=== PATIENT | female | born 2005 | race Caucasian/White ===

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

== ENCOUNTER 2023-01-10 08:18 | Outpatient (REF) | payer OTHER, SELFPAY ==
[2023-01-10 09:39] LABS: MANUAL DIFF FLAG NO
[2023-01-10 10:30] LABS: Basophils Percent Auto 0.4 % (0-2); Eosinophils Absolute Auto 0.1 X10*3/uL (0.0-0.4); Hematocrit 43.6 % (37.0-47.0); Hemoglobin 13.7 g/dl (12.0-16.0); Imm Gran Abs Auto 0.02 X10*3/uL (0.00-0.03); Imm Gran Pct Auto 0.2 % (0.0-0.4); Lymphocytes Absolute Auto 2.3 X10*3/uL (1.2-4.9); Lymphocytes Percent Auto 28.2 % (20-40); Mean Corpuscular HGB Conc 31.4 g/dl (31.0-35.0); Mean Corpuscular Hemoglobin 25.7 pg (27.0-33.0); Mean Corpuscular Volume 81.8 fL (80.0-98.0); Mean Platelet Volume 10.5 fL (9.4-12.3); Monocytes Absolute Auto 0.5 X10*3/uL (0.1-1.2); Monocytes Percent Auto 6.4 % (2-11); Neutrophils Absolute Auto 5.2 x10*3/uL (2.0-8.3); Neutrophils Percent Auto 63.8 % (45-73); Platelet Count 326 X10*3/uL (160-400); Red Blood Count 5.33 X10*6/uL (4.20-5.50); Red Cell Distribution Width 13.9 % (11.0-16.0); White Blood Count 8.1 X10*3/uL (4.8-10.8)
[2023-01-10 10:55] LABS: Alanine Aminotransferase 18 U/L (0-31); Albumin Level 4.3 g/dL (3.5-5.0); Alkaline Phosphatase 64 U/L (39-117); Anion Gap 13 (12-20); Aspartate Amino Transferase 14 U/L (5-31); Bilirubin Total 0.7 mg/dL (0.0-1.0); Blood Urea Nitrogen 9 mg/dL (9-16); C Reactive Protein 2.06 mg/dL (< or = 0.50); Calcium 9.7 mg/dL (8.4-10.2); Carbon Dioxide 25 mmol/L (22-29); Chloride 106 mmol/L (96-108); Estimated Glomerular Filt Rate > 60; Glucose Random 90 mg/dL (60-115); Potassium 3.8 mmol/L (3.3-5.1); Sodium 140 mmol/L (135-145)
[2023-01-14 17:59] LABS: Gliadin Deamidated IgA Ab 3.4 U/mL; Gliadin Deamidated IgG Ab <1.0 U/mL; Transglutaminase Ab IgG <1.0 U/mL; Transglutaminase IgA <1.0 U/mL
== END 2023-01-10 08:19 | disposition home or self-care (01) ==
LOC: HO.LAB 08:18
PROVIDERS: PCP Internal Medicine; Visit Provider Nurse Practitioner
DX: K80.20 Calculus of gallbladder without cholecystitis without obstruction (principal); E66.01 Morbid (severe) obesity due to excess calories; R19.7 Diarrhea, unspecified; B37.9 Candidiasis, unspecified; Z91.09 Other allergy status, other than to drugs and biological substances
CPT/HCPCS: 36415; 80053; 84443; 85025; 86003; 86140; 86258; 86364

== ENCOUNTER 2023-01-13 15:16 | Outpatient (REF) | payer OTHER, SELFPAY ==
[2023-01-22 21:14] LABS: Pancreatic Elastase-1 >500 mcg/g
== END 2023-01-13 15:17 | disposition home or self-care (01) ==
LOC: HO.LNP 15:16
PROVIDERS: Visit Provider Nurse Practitioner
DX: R19.7 Diarrhea, unspecified (principal)
CPT/HCPCS: 82656; 87338

== ENCOUNTER → 2023-02-07 10:50 | Outpatient (REF) | payer OTHER, SELFPAY ==
--- NOTE | ~2023-02-07 | NM_ITS ---
EXAMINATION: BILIARY TRACT IMAGING STUDY WITH CCK CLINICAL INFORMATION: Diarrhea, unspecified.. COMPARISON: No previous imaging studies are available for comparison.. TECHNIQUE: Serial gamma scintillation camera images were obtained over the abdomen for a total observation period of 93 minutes following the intravenous administration of 5 mCi Tc-99m Mebrofenin. FINDINGS: There is good concentration of activity in the liver by 5 minutes post injection. Biliary activity is visualized by 10 minutes. The gallbladder is well visualized by 40 minutes. Small bowel is well visualized by 15 minutes. At 6 minutes post radiopharmaceutical injection, a 30-minute infusion of 2.2 micrograms Sincalide was then begun and an additional 40 minutes of images were obtained. There is good emptying of the gallbladder. By the end of the study there is good clearance of activity from the liver and visualization of diffuse small bowel activity. The calculated gallbladder ejection fraction is 94% (normal gallbladder ejection fraction is greater than 35%). NM/NM hepatobiliary w pharm IMPRESSION: Visualization of the gallbladder is evidence of a patent cystic duct and strong evidence against the diagnosis of acute cholecystitis. The common bile duct is patent. Gallbladder emptying and ejection fraction are normal. Liver function appears normal.
== END ==
LOC: HO.NUCMED 10:50
PROVIDERS: PCP Internal Medicine; Visit Provider Nurse Practitioner
DX: R19.7 Diarrhea, unspecified (principal)
CPT/HCPCS: 78227; A9537; J2805

== ENCOUNTER 2023-02-14 10:07 | Outpatient (AMB) | payer OTHER, SELFPAY ==
--- NOTE | 2023-02-14 10:31 | A.OFFVIS_ITS ---
Intake Vital Signs 02/14/23 10:41 Height 4 ft 11 in Weight 240 lb BMI 48.5 BP 122/60 Blood Pressure Location Lt brachial Position Sitting Pulse 97 Intake Visit Reasons: 3 week fu Intake Note: Patient follow up Gallbladder problems lems. Patient cc: abdominal pain/bloating, constipation with blood, no energy , hard to sleep and some diarrhea, acid reflex and some dysphagia. Always have to use a heat pad due the pain. Orthopedic Coder Required: No Accompanied by: Mother Allergies cat dander Adverse Reaction (Verified 02/14/23 10:37) Itchy Eyes house dust mite Adverse Reaction (Verified 02/14/23 10:37) itchy eyes mold Adverse Reaction (Verified 02/14/23 10:37) ithcy eyes HPI 3 week fu HPI Details Assessment & Plan (1) Gallbladder calculus: ?Code(s): K80.20 - Calculus of gallbladder without cholecystitis without obstruction ?Plan: The the patient presents today with her mother who is supportive. She is having pain under the bilateral ribs that radiates to the back and to her right shoulder. She also is very nauseated, having diarrhea alt with more formed stools. This has been going on for months. This came on slowly. She is also very bloated and eating makes the nausea worse. There are no specific food triggers. At times she will feel pain in the low abdomen, and she will feel that her belly is being squished form the RUQ inward (the LUQ too). This is worsened after she has a BM.? However in terms of the lower abdominal pain she is also having very heavy and prolonged menses for which she is seeing an OBGYN.? In fact it was the OBGYN who ordered the ultrasound and CT scan to explore her ongoing symptoms. She is always fatigued and cold.? Her weight has only fluctuated up and down a couple of lb. She seems resistant to medications and she becomes anxious with s/e. She was recently on sertraline and stopped it and just started Depo shots and thinks that these are also giving her side effects.? Her mother is trying to encourage her to continue with medications to see if her body can adjust to them because she thinks the psych medicine seem to do her good.? Her mom also states the patient does a lot of reading on the Internet and this may be influencing her perception of side effects. Her mother and her sister and maternal grandmother all had cholecystectomies.? I explained to them that the CT was not conclusive for gallstones/sludge and interesting that her symptoms do not seem to be exacerbated by fatty foods.? She likes to eat mostly mac and cheese all of her life, milk will hurt her stomach and she may be lactose intolerant. No known food allergies in family. NO known colon problems. No known stomach or esoph cancer but her mother had mouth cancer (not a smoker) and her mother had Hodgkins lymphoma. I educate him that we want to make sure that the gallbladder is actually the cause of her symptoms before she undergoes a major surgery.? I also explained the physiology of the GI system and that her symptoms also could be driven by the colon which also runs underneath bilateral ribcage.? I let them understand that I have not completely ruling out the gallbladder as the cause but I want to be sure so that she does not go through something and end up having exactly the same symptoms and more after major surgery.? The both seem to understand this. Her mother has IBS.? The patient also has many physical manifestations to her anxiety including hives, leg swelling etc. and this prompts me to educate them that IBS and GI problems also were heavily influenced by neural on hormone with signals including the fight or flight reflex that is closely linked with anxiety.? However, I always like to rule out more severe pathology before we say that this is anxiety driven. She is on omeprazole for GERD.? At this point I think will get basic labs including a thyroid, an H pylori stool, pancreatic elastase, RAST allergy and celiac testing.? For the bowel them going to give her dicyclomine for comfort and as a diagnostic test to see if we can tease out IBS symptoms. I think will start her on simethicone as well as dicyclomine.? I will try to get a HIDA scan to see if gallbladder problems are part of the diagnostic picture.? I will also give her some nystatin cream for her Yarely rash which is noted on physical exam.? Return office visit in 3 weeks. (2) Morbid obesity: ?Code(s): E66.01 - Morbid (severe) obesity due to excess calories (3) Diarrhea: ?Code(s): R19.7 - Diarrhea, unspecified (4) Yarely albicans infection: ?Code(s): B37.9 - Candidiasis, unspecified ? ? ? Orders: Orders Pancreatic Elastas e-1 01/14/23 R19.7 - Diarrhea, unspecified ? Comprehensive Met. Panel 01/10/23 R19.7 - Diarrhea, unspecified ? C Reactive Protein 01/10/23 R19.7 - Diarrhea, unspecified ? Rast Allergen 01/10/23 R19.7 - Diarrhea, unspecified ? TSH reflex Free T4 01/10/23 R19.7 - Diarrhea, unspecified ? Complete Blood Cou nt Auto Diff 01/10/23 R19.7 - Diarrhea, unspecified ? Gliadin Ab Panel 01/10/23 R19.7 - Diarrhea, unspecified ? Transglutaminase I gA 01/10/23 R19.7 - Diarrhea, unspecified ? Transglutaminase A b IgG 01/10/23 R19.7 - Diarrhea, unspecified ? NM hepatobiliary w pharm 01/10/23 R19.7 - Diarrhea, unspecified ? H pylori Ag StoolB 01/14/23 R19.7 - Diarrhea, unspecified ? Medications: New dicyclomine 10 mg PO QID 120 c aps 3RF R19.7 - Diarrhea, unspecified ? simethicone ?? aft er meals 180 mg PO QID 120 caps 3RF 30 days ? ? nystatin 1 appl topical QID 30 grams 3RF B37.9 - Candidiasi s, unspecified ? LABS: Laboratory Tests 01/10/23 01/10/23 01/10/23 09:37 09:37 09:37 WBC 8.1 Hgb 13.7 Hct 43.6 Plt Count 326 Estimated GFR > 60 Total Bilirubin 0.7 AST 14 ALT 18 Alkaline Phosphata se 64 C-Reactive Protein 2.06 H TSH 1.00 Stool Pancreat Adrianna stase Stool H. pylori Ag Tiss Transglutamin IgG <1.0 Tiss Transglutamin IgA <1.0 Anti-Gliadin IgG A b <1.0 Gliadin (Deamidat) IgA 3.4 01/13/23 01/13/23 14:00 14:00 WBC Hgb Hct Plt Count Estimated GFR Total Bilirubin AST ALT Alkaline Phosphata se C-Reactive Protein TSH Stool Pancreat Adrianna stase >500 Stool H. pylori Ag negative Tiss Transglutamin IgG Tiss Transglutamin IgA Anti-Gliadin IgG A b Gliadin (Deamidat) IgA RAST She has low level of allergic response to: Egg whites, Peanuts, Wheat, and sesame seeds. HIDA SCAN 02/11/23 FINDINGS: There is good concentration of activity in the liver by 5 minutes post injection. Biliary activity is visualized by 10 minutes. The gallbladder is well visualized by 40 minutes. Small bowel is well visualized by 15 minutes. At 6 minutes post radiopharmaceutical injection, a 30-minute infusion of 2.2 micrograms Sincalide was then begun and an additional 40 minutes of images were obtained. There is good emptying of the gallbladder. By the end of the study there is good clearance of activity from the liver and visualization of diffuse small bowel activity. The calculated gallbladder ejection fraction is 94% (normal gallbladder ejection fraction is greater than 35%). NM/NM hepatobiliary w pharm IMPRESSION: Visualization of the gallbladder is evidence of a patent cystic duct and strong evidence against the diagnosis of acute cholecystitis. The common bile duct is patent. Gallbladder emptying and ejection fraction are normal. Liver function appears normal. ? TODAY'S VISIT She has some food allergies, and an elevated crp > 2. This could be from allergies or could be IBD. Will get stool calprotectin and IBS genetics. Will start reglan qidachs 5mg and she has rectal bleeding, mom hx of polyps, will get EGD/colonoscopy. Wants sutab ad can't drink other preps. She is frustrated that we can't just take out the GB but I explain the HIDA scan does not support this. She does not feel the food allreties are contributing as I don't eat those things but her mac and cheese has noodles that are wheat based. No real help with dicylcomine, diflucan, or simethicone. SHe has not yet used nystatin cream under stomach. ROV 3 weeks. [facility] Medical History Anxiety and depression Asymmetrical breasts Gallbladder calculus Low HDL (under 40) Morbid obesity Pulmonary valve stenosis Surgical History No pertinent past surgical history Family History Maternal Aunt No problems noted. Maternal Uncle Mental health disorder Mother Bronchial asthma Essential hypertension Morbid obesity Anxiety and depression Social History Housing: House Patient Tobacco Use Status: Never used Tobacco e-Cigarette/Vaping Use: Never Used service: No Current occupational status: unemployed Review of Systems Const Denies fatigue, Denies fever(s), Denies night sweats, Reports poor appetite and Denies weight loss ENT Reports Normal hearing present, Denies dental pain, Denies dysphagia, Denies hearing loss, Denies mouth pain, Denies odynophagia, Denies throat swelling, De nies tongue swelling and Reports other (Dentition adequate) Card Reports no additional complaints Resp Reports no additional complaints GI Reports abdominal pain, Denies melena, Denies bloating, Denies hematochezia, Reports constipation, Denies GI cramping, Denies dysphagia, Denies excessive flatus, Denies early satiety, Reports heartburn, Reports diarrhea, Reports nausea, Denies odynophagia, Denies vomiting and Denies hematemesis Skin/Breast Denies pruritus, Denies lesions, Denies rash and Denies jaundice Neuro Reports Normal hearing present and Denies Abnormal speech present Psych Reports anxiety Endo Denies fatigue Aller/Immun Denies throat swelling and Denies tongue swelling Physical Exam Vital Signs: Last Vital Signs Pulse 97 02/14/23 10:41 BP 122/60 02/14/23 10:41 BMI result Body Mass Index 48.5 Const General: cooperative, no acute distress, well developed and well groomed Nutritional Appearance: well nourished and obese morbidly obese Orientation/consciousness: oriented to person, oriented to place and oriented to time Limitations: No language barrier HEENT Head: Yes normocephalic and Yes atraumatic Eyes General: appearance normal, both eyes and all related structures Pupils: Equal, round and reactive pupils present Neck Neck: Yes normal visual inspection and Yes no lymphadenopathy Thyroid: Thyroid normal Resp Effort & Inspection: normal respiratory effort and able to speak in complete sentences Auscultation: clear to auscultation bilaterally Cardio Rate: regular rate Rhythm: regular rhythm Heart sounds: Normal, physiologic split S2 sound present Peripheral pulses: radial pulses present and posterior tibial pulses present GI Inspection: No distended, Yes Abdominal panniculus present and Yes obesity Palpation (GI): Soft to palpation, nontender, no guarding, not rigid and No hepatosplenomegaly present Percussion: Yes normal to percussion Auscultation: normal bowel sounds Rectal Exam - Female: deferred Skin General skin exam: no rashes or lesions noted, turgor normal, skin not dry, no jaundice, No spider nevi and no striae Rashes: no rashes Nails: normal Neuro General: oriented to person, oriented to place and oriented to time Cranial nerves: Yes Equal, round and reactive pupils present and Yes Normal hearing present Speech: No Abnormal speech present Extrem General: Yes normal to inspection, No clubbing, No cyanosis and No edema Psych Appearance: grossly normal and well kempt Mental Status: mental status grossly normal Speech and movement: Normal speech and movement present Affect: normal affect Attitude: cooperative Thought process: Normal thought process present and not confabulating Thought content: Normal thought content present Insight: Limited insight present (Psych) Judgement: Limited judgement present (Psych) Results Reviewed Results Reviewed: Laboratory Tests 01/10/23 01/10/23 01/10/23 09:37 09:37 09:37 WBC 8.1 Hgb 13.7 Hct 43.6 Plt Count 326 Estimated GFR > 60 Total Bilirubin 0.7 AST 14 ALT 18 Alkaline Phosphatase 64 C-Reactive Protein 2.06 H TSH 1.00 Stool Pancreat Elastase Stool H. pylori Ag Tiss Transglutamin IgG <1.0 Tiss Transglutamin IgA <1.0 Anti-Gliadin IgG Ab <1.0 Gliadin (Deamidat) IgA 3.4 01/13/23 01/13/23 14:00 14:00 WBC Hgb Hct Plt Count Estimated GFR Total Bilirubin AST ALT Alkaline Phosphatase C-Reactive Protein TSH Stool Pancreat Elastase >500 Stool H. pylori Ag negative Tiss Transglutamin IgG Tiss Transglutamin IgA Anti-Gliadin IgG Ab Gliadin (Deamidat) IgA RAST She has low level of allergic response to: Egg whites, Peanuts, Wheat, and sesame seeds. HIDA SCAN 02/11/23 FINDINGS: There is good concentration of activity in the liver by 5 minutes post injection. Biliary activity is visualized by 10 minutes. The gallbladder is well visualized by 40 minutes. Small bowel is well visualized by 15 minutes. At 6 minutes post radiopharmaceutical injection, a 30-minute infusion of 2.2 micrograms Sincalide was then begun and an additional 40 minutes of images were obtained. There is good emptying of the gallbladder. By the end of the study there is good clearance of activity from the liver and visualization of diffuse small bowel activity. The calculated gallbladder ejection fraction is 94% (normal gallbladder ejection fraction is greater than 35%). NM/NM hepatobiliary w pharm IMPRESSION: Visualization of the gallbladder is evidence of a patent cystic duct and strong evidence against the diagnosis of acute cholecystitis. The common bile duct is patent. Gallbladder emptying and ejection fraction are normal. Liver function appears normal. Assessment & Plan Assessment & Plan (1) Diarrhea: Code(s): R19.7 - Diarrhea, unspecified (2) Multiple food allergies: Comment: egg whites, peanuts, wheat, sesame seeds Code(s): Z91.018 - Allergy to other foods (3) Nausea and vomiting: Code(s): R11.2 - Nausea with vomiting, unspecified (4) Rectal bleeding: Code(s): K62.5 - Hemorrhage of anus and rectum (5) Elevated C-reactive protein (CRP): Code(s): R79.82 - Elevated C-reactive protein (CRP) Orders: Orders EGD/[facility] - GI Use Only 02/14/23 K62.5 - Hemorrhage of anus and rectum, R11.2 - Nausea with vomiting, unspecified [facility] 02/14/23 R19.7 - Diarrhea, unspecified, R79.82 - Elevated C- reactive protein (CRP) Calprotectin, Fecal 02/14/23 R19.7 - Diarrhea, unspecified, R79.82 - Elevated C- reactive protein (CRP) Medications: New metoclopramide HCl (Reglan) provider aware of possible interaction with antidepressent and is monitoring 5 mg PO QIDACHS 120 tabs 3RF R11.2 - Nausea with vomiting, unspecified sod sulf-pot chloride-mag sulf 1.479-0.188- 0.225 gram (Sutab) PO PER PKG DIR 24 tabs 0RF On Hold dicyclomine Hold Comment: Doctor's Order 10 mg PO QID 120 caps 3RF R19.7 - Diarrhea, unspecified Coding Level of Care Code Est Pt Level 4 (06434) Diagnoses Diarrhea R19.7 Multiple food allergies Z91.018 Nausea and vomiting R11.2 Rectal bleeding K62.5 Elevated C-reactive protein (CRP) R79.82
[2023-02-14 10:41] VITALS: BP 122/60; PULSE 97; BMI 48.5
== END 2023-02-14 16:39 | disposition home or self-care (01) ==
PROVIDERS: PCP Internal Medicine; Visit Provider Nurse Practitioner
DX: R19.7 Diarrhea, unspecified (principal); Z91.018 Allergy to other foods; R11.2 Nausea with vomiting, unspecified; K62.5 Hemorrhage of anus and rectum; R79.82 Elevated C-reactive protein (CRP)
CPT/HCPCS: 99214

== ENCOUNTER → 2023-02-14 10:07 | Outpatient (BNVA) | payer OTHER, SELFPAY | PROVIDERS: PCP Internal Medicine; Visit Provider Nurse Practitioner ==

== ENCOUNTER 2023-05-11 11:20 | Outpatient (REF) | payer OTHER, SELFPAY ==
[2023-05-17 21:43] LABS: Calprotectin, Fecal 249 mcg/g
== END 2023-05-11 11:21 | disposition home or self-care (01) ==
LOC: HO.LNP 11:20
PROVIDERS: Visit Provider Nurse Practitioner
DX: R19.7 Diarrhea, unspecified (principal); R79.82 Elevated C-reactive protein (CRP)
CPT/HCPCS: 83993

== ENCOUNTER 2023-05-12 10:44 | Outpatient (REF) | payer OTHER, SELFPAY | END 2023-05-12 10:45 | disposition home or self-care (01) | LOC: HO.LAB 10:44 | PROVIDERS: PCP Internal Medicine; Visit Provider Nurse Practitioner | DX: R19.7 Diarrhea, unspecified (principal); R79.82 Elevated C-reactive protein (CRP) | CPT/HCPCS: 36415; 81479; 82397; 83520; 86140; 88346; 88350 ==

== ENCOUNTER 2023-05-16 10:37 | Day surgery (SDC) | payer OTHER, SELFPAY ==
[2023-05-14 14:25] VITALS: BMI 48.5
--- NOTE | 2023-05-15 09:58 | HO.ANESPROP2 ---
Documented by User: Mireille Castillo NP 05/15/23 10:06 HPI - Anesthesia Eval Consult details Narrative: 18yo F for Upper Endoscopy and Colonoscopy Follows pediatric occupational therapist for mild supravalvar pulmonic stenosis. Last visit 01/2023. Pt c/o palps thought to be r/t to anxiety. Optimized for procedures. PMFSH Active Problems Active Problems: All Active Problems (Updated 02/14/23 @ 11:04 by HERBER Chávez) Elevated C-reactive protein (CRP) (Acute) Rectal bleeding (Acute) Nausea and vomiting (Acute) Multiple food allergies (Acute) Yarely albicans infection (Acute) Diarrhea (Acute) Gallbladder calculus (Acute) Low HDL (under 40) (Acute) Anxiety and depression (Acute) Morbid obesity (Acute) Asymmetrical breasts (Acute) Pulmonary valve stenosis (Acute) Past Medical History Medical History Gallbladder calculus Low HDL (under 40) Anxiety and depression Morbid obesity Asymmetrical breasts Pulmonary valve stenosis Family History Family History Maternal Aunt No problems noted. Maternal Uncle Mental health disorder Mother Bronchial asthma Essential hypertension Morbid obesity Anxiety and depression Surgical History Surgical History No pertinent past surgical history Social History Social History Housing: House Patient Tobacco Use Status: Never used Tobacco e-Cigarette/Vaping Use: Never Used Use of substances other than those prescribed or required for medical reasons: No Advance Directives: No Advance Directives Information Provided: Yes Patient : No service: No Current occupational status: unemployed Meds Allergies Allergy/AdvReac Type Severity Reaction Status Date / Time cat dander AdvReac Itchy Eyes Verified 02/14/23 10:37 house dust mite AdvReac itchy eyes Verified 02/14/23 10:37 mold AdvReac ithcy eyes Verified 02/14/23 10:37 Home Medications Medication Instructions Recorded Confirmed Last Taken Type cetirizine 10 mg tablet (Zyrtec) 10 mg PO DAILY PRN 01/10/23 Unknown History ergocalciferol (vitamin D2) 1,250 1,250 mcg PO QWEEK 01/10/23 Unknown History mcg (50,000 unit) capsule (Vitamin D2) medroxyprogesterone 150 mg/mL 150 mg IM [id number] 01/10/23 Unknown History intramuscular suspension omeprazole 40 mg capsule,delayed 40 mg PO DAILY 01/10/23 Unknown History release sertraline 100 mg tablet 100 mg PO DAILY 01/10/23 Unknown History Exam Exam Date and Time: May 15, 2023 0958 Height,Weight and Vital Signs: Height 4 ft 11 in Weight 108.862 kg Pertinent Lab Results Pertinent Lab Results: Laboratory Tests 01/10/23 09:37 WBC 8.1 Hgb 13.7 Hct 43.6 Plt Count 326 Sodium 140 Potassium 3.8 Chloride 106 Carbon Dioxide 25 BUN 9 Creatinine 0.71 Narrative Narrative: EKG 01/2023 NSR @ 71 Assessment and Plan Assessment Anesthesia Assessment: Chart Reviewed Documented by User: Angélica Ghotra MD 05/16/23 13:03 [facility] Past Medical History Medical History Gallbladder calculus Low HDL (under 40) Anxiety and depression Morbid obesity Asymmetrical breasts Pulmonary valve stenosis Family History Family History Maternal Aunt No problems noted. Maternal Uncle Mental health disorder Mother Bronchial asthma Essential hypertension Morbid obesity Anxiety and depression Surgical History Surgical History No pertinent past surgical history History of Problems with Anesthesia: No Social History Social History Housing: House Patient Tobacco Use Status: Never used Tobacco e-Cigarette/Vaping Use: Never Used Use of substances other than those prescribed or required for medical reasons: No Advance Directives: No Advance Directives Information Provided: Yes Patient : No service: No Current occupational status: unemployed Meds Allergies Allergy/AdvReac Type Severity Reaction Status Date / Time cat dander AdvReac Itchy Eyes Verified 02/14/23 10:37 house dust mite AdvReac itchy eyes Verified 02/14/23 10:37 mold AdvReac ithcy eyes Verified 02/14/23 10:37 Home Medications Medication Instructions Recorded Confirmed Last Taken Type cetirizine 10 mg tablet (Zyrtec) 10 mg PO DAILY PRN 01/10/23 Unknown History ergocalciferol (vitamin D2) 1,250 1,250 mcg PO QWEEK 01/10/23 Unknown History mcg (50,000 unit) capsule (Vitamin D2) medroxyprogesterone 150 mg/mL 150 mg IM [id number] 01/10/23 Unknown History intramuscular suspension omeprazole 40 mg capsule,delayed 40 mg PO DAILY 01/10/23 Unknown History release sertraline 100 mg tablet 100 mg PO DAILY 01/10/23 Unknown History Exam Airway Mallampati Class: II TM Dist: >3cm Neck ROM: Full Loose/Missing/Broken Teeth: No Heart: RRR Lungs: CTA Assessment and Plan Assessment Anesthesia Assessment: Anesthesia Plan Discussed Final Anesthetic Review History of Problems with Anesthesia: No NPO: Yes ASA Class: III Final Preanesthetic Review: Meds/Allgs Chart Reviewed, Consent Obtained/Reviewed and Anes Risks/Benef Reviewed Patient Risk: Intermediate Procedure Risk: Intermediate Anesthetic Plan Anesthetic Plan: MAC: Disposition: Standard PACU
[2023-05-16 11:18] LABS: UPreg QC Valid YES; Urine Pregnancy NEGATIVE (NEGATIVE)
[2023-05-16 11:43] VITALS: BP 127/61; PULSE 88; RESP 18; TEMP 36.7; O2SAT 96
--- NOTE | 2023-05-16 12:52 | MHC.SHP ---
Pre-Procedural Eval Section A Date of Service: 05/16/23 The patient is an INPATIENT: No The History & Physical has been completed within 30 days and I have reviewed it.: No Section B Chief Complaint: Nausea with vomiting,diarrhea Relevant Family History (Specify if Yes): No Relevant Social History: None Present Medications: see Short Stay Collaborative assessment Medical History: Significant History (Anxiety and depression Asymmetrical breasts Gallbladder calculus Low HDL (under 40) Morbid obesity Pulmonary valve stenosis) History of Previous Operations: No relevant previous surgery Allergies: Allergies Allergy/AdvReac Type Severity Reaction Status Date / Time cat dander AdvReac Itchy Eyes Verified 02/14/23 10:37 house dust mite AdvReac itchy eyes Verified 02/14/23 10:37 mold AdvReac ithcy eyes Verified 02/14/23 10:37 Review of Systems Sugical H&P ROS: Negative: Constitution, Cardiovascular, Respiratory and Gastrointestinal Exam Surgical H&P Exam: Normal: Heart, Normal: Lungs, Normal: Extremities and Normal: Abdomen Plan Diagnosis/Plan: Unchanged I have reviewed the history and physical and performed a pertinent physical examination on my patient. No changes have occurred unless specified. Time Spent With Patient Time: Total time managing care of this patient today ____ minutes.
[2023-05-16] MEDS: Lactated Ringers 1,000 ML 100 ML IVCONT (13:01)
--- NOTE | 2023-05-16 14:15 | W.PM.OPN ---
Operative Note Operative Note Date of Service: 05/16/23 Narrative: FLEXIBLE TRANSORAL UPPER GASTROINTESTINAL ENDOSCOPY WITH BIOPSIES AND COLONOSCOPY TILL CECUM WITH BIOPSIES Pre-op diagnosis: Nausea, vomiting, abdominal pain, diarrhea Post-op diagnosis: Gastritis, normal colonoscopy? Endoscopist:? Hung Beckford MD Anesthesia:?MAC UPPER ENDOSCOPY Consent: Indications for the procedure and potential complications of bleeding, perforation, reaction to medications and missed diagnosis were discussed with the patient and informed consent was obtained. Instrument: Olympus GIF H 190 mid size upper endoscope Monitoring: Vital signs and clinical assessment, continuous EKG monitoring, Pulse oximetry, Carbon Dioxide monitoring and blood pressure monitoring were done throughout the procedure. Procedure: The patient was placed in the left lateral decubitis position and pre-procedure medications were administered and a bite block was placed. The endoscope was inserted into the mouth and advanced under direct vision to the third part of duodenum. A careful inspection was made as the upper endoscope was withdrawn including a retroflexed examination of the proximal stomach; Findings and interventions are described below. Findings: Larynx: Normal Esophagus: GE junction at 35 cms. No esophagitis or Leal's. Stomach: Moderate diffuse gastric erythema. Biopsies were obtained from the antrum and body of the stomach. Grade 2 flap valve on retroflexed examination of the cardia. Duodenum: Normal bulb and descending duodenum. Biopsies were obtained from 3rd part of duodenum to check for celiac sprue Intervention: Biopsies as noted above COLONOSCOPY PROCEDURE NOTE Consent: Indications for the procedure and potential complications of bleeding, perforation, reaction to medications and missed diagnosis were discussed with the patient and informed consent was obtained. Instrument: Olympus PCF H 190 L variable stiffness pediatric colonoscope Monitoring: Vital signs and clinical assessment, intermittent blood pressure monitoring, continuous EKG monitoring, Pulse oximetry and Carbon Dioxide monitoring were done throughout the procedure. Colon withdrawl time was 15 minutes. Procedure: The patient was placed in the left lateral decubitis position and pre-procedure medications were administered. After a digital rectal examination of the ano-rectum, the video colonoscope was inserted into the rectum and advanced through the colon to the cecum. The colonoscope was slowly withdrawn in a retrograde panoramic fashion and the colon mucosa was carefully examined including a retroflexed view of the rectum. Findings and interventions are described below. Procedure Difficulty: : Without difficulty Findings: Terminal Ileum: Distal 10 cms was examined and mucosa appeared normal Cecum: Normal Ascending Colon: Normal Transverse Colon: Normal Descending Colon: Normal Sigmoid Colon: Normal Rectum: Normal Ano-rectum: Normal Colon preparation: Excellent Impression and Post Procedure Diagnosis: Endoscopy Findings: STOMACH: Moderate diffuse gastritis DUODENUM: Normal - biopsied to check for celiac sprue Colonoscopy Findings: No polyps were detected Normal mucosa in the colon and terminal ileum - random biopsies were obtained from the TI, right and left colon to check for IBD Plan: Await pathology results Patient has an appointment on 05/30/23 in the GI Clinic with Mane Chávez Repeat Colonoscopy in 25 years if biopsies are normal Above findings were reviewed with the patient and Gastritis handout was given in the discharge area Pt reported on arrival to the OR that she is passing black stools Small amount of liquid yellow stools noted in the colon during colonoscopy which was suctioned. No active bleeding or potential source of bleeding seen during EGD and Colon.
--- NOTE | 2023-05-16 14:17 | HO.ANESPROP2 ---
[facility] Active Problems Active Problems: All Active Problems (Updated 02/14/23 @ 11:04 by HERBER Chávez) Elevated C-reactive protein (CRP) (Acute) Rectal bleeding (Acute) Nausea and vomiting (Acute) Multiple food allergies (Acute) Yarely albicans infection (Acute) Diarrhea (Acute) Gallbladder calculus (Acute) Low HDL (under 40) (Acute) Anxiety and depression (Acute) Morbid obesity (Acute) Asymmetrical breasts (Acute) Pulmonary valve stenosis (Acute) Past Medical History Medical History Gallbladder calculus Low HDL (under 40) Anxiety and depression Morbid obesity Asymmetrical breasts Pulmonary valve stenosis Functional capacity: independent ambulation Patient : No Family History Family History Maternal Aunt No problems noted. Maternal Uncle Mental health disorder Mother Bronchial asthma Essential hypertension Morbid obesity Anxiety and depression Family history of problems with anesthesia: No Surgical History Surgical History No pertinent past surgical history History of Problems with Anesthesia: No Social History Social History Housing: House Patient Tobacco Use Status: Never used Tobacco e-Cigarette/Vaping Use: Never Used Use of substances other than those prescribed or required for medical reasons: No Advance Directives: No Advance Directives Information Provided: Yes Patient : No service: No Current occupational status: unemployed Meds Allergies Allergy/AdvReac Type Severity Reaction Status Date / Time cat dander AdvReac Itchy Eyes Verified 02/14/23 10:37 house dust mite AdvReac itchy eyes Verified 02/14/23 10:37 mold AdvReac ithcy eyes Verified 02/14/23 10:37 Active Medications: Current Medications Lactated Ringer's (Lr) 1,000 mls @ 100 mls/hr IVCONT .Q10H ROMINA Last Admin: 05/16/23 13:01 Dose: 100 mls/hr Home Medications Medication Instructions Recorded Confirmed Last Taken Type cetirizine 10 mg tablet (Zyrtec) 10 mg PO DAILY PRN 01/10/23 Unknown History ergocalciferol (vitamin D2) 1,250 1,250 mcg PO QWEEK 01/10/23 Unknown History mcg (50,000 unit) capsule (Vitamin D2) medroxyprogesterone 150 mg/mL 150 mg IM [id number] 01/10/23 Unknown History intramuscular suspension omeprazole 40 mg capsule,delayed 40 mg PO DAILY 01/10/23 Unknown History release sertraline 100 mg tablet 100 mg PO DAILY 01/10/23 Unknown History Exam Exam Date and Time: May 16, 2023 1417 Height,Weight and Vital Signs: Height 4 ft 11 in Weight 108.862 kg Last Vital Signs Temp 98.1 F 05/16/23 11:43 Pulse 88 05/16/23 11:43 Resp 18 05/16/23 11:43 BP 127/61 05/16/23 11:43 Pulse Ox 96 05/16/23 11:43 O2 Del Method Room Air 05/16/23 11:43 Pertinent Lab Results Pertinent Lab Results: Laboratory Tests 05/16/23 11:00 Urine Test NEGATIVE Airway Mallampati Class: III TM Dist: >3cm Neck ROM: Full Heart: RRR Lungs: CTA Assessment and Plan Assessment Anesthesia Assessment: Anesthesia Plan Discussed Final Anesthetic Review Family History of Problems with Anesthesia: No History of Problems with Anesthesia: No ASA Class: III Final Preanesthetic Review: Meds/Allgs Chart Reviewed, Consent Obtained/Reviewed and Anes Risks/Benef Reviewed Patient Risk: Intermediate Procedure Risk: Low Anesthetic Plan Anesthetic Plan: MAC: Disposition: Standard PACU
[2023-05-16 15:04] VITALS: BP 130/77; PULSE 95; RESP 14; TEMP 37.2; O2SAT 98
[2023-05-16 15:19] VITALS: BP 134/83; PULSE 91; RESP 16; O2SAT 98
[2023-05-16 15:25] VITALS: TEMP 37
--- NOTE | 2023-05-16 15:32 | HO.POSTANES ---
Post Anesthesia Evaluation Post Anesthesia Evaluation Date of Service: 05/16/23 Vital Signs: Vital Signs Temp Pulse Resp BP Pulse Ox O2 Del Method 05/16/23 15:19 91 16 134/83 98 Room Air 05/16/23 15:04 98.9 F 95 14 130/77 98 Room Air 05/16/23 11:43 98.1 F 88 18 127/61 96 Room Air Anesthesia: Monitored Mental Status: Awake Pain Control: Satisfactory Nausea/Vomiting: None Hydration: Adequate Anesthesia-Related Issues: No Anes. Related Issues
== END 2023-05-16 15:50 | disposition home or self-care (01) ==
PROVIDERS: Nurse Practitioner; PCP Internal Medicine; Visit Provider Internal Medicine Gastroenterology
PROC: (CPT 45380; principal; 2023-05-16 13:00)
DX: R19.7 Diarrhea, unspecified (principal); R11.2 Nausea with vomiting, unspecified; K29.50 Unspecified chronic gastritis without bleeding; K21.9 Gastro-esophageal reflux disease without esophagitis; K80.20 Calculus of gallbladder without cholecystitis without obstruction; E78.6 Lipoprotein deficiency; F41.8 Other specified anxiety disorders; I37.0 Nonrheumatic pulmonary valve stenosis; E66.01 Morbid (severe) obesity due to excess calories; Z68.42 Body mass index [BMI] 45.0-49.9, adult; Z79.899 Other long term (current) drug therapy
CPT/HCPCS: 45380; 43239; 81025; 88305; 88342; J2250

== ENCOUNTER → 2023-05-16 10:37 | Outpatient (BNV) | payer OTHER, SELFPAY | PROVIDERS: PCP Internal Medicine; Visit Provider Internal Medicine Gastroenterology | DX: K52.9 Noninfective gastroenteritis and colitis, unspecified (principal); K29.70 Gastritis, unspecified, without bleeding | CPT/HCPCS: 43239; 45378 ==

== ENCOUNTER 2023-05-30 09:22 | Outpatient (AMB) | payer OTHER, SELFPAY ==
--- NOTE | 2023-05-30 09:26 | A.OFFVIS_ITS ---
Intake Vital Signs 05/30/23 09:30 Height 4 ft 11 in Weight 243 lb 9.773 oz BMI 49.2 BP 119/56 L Blood Pressure Location Rt brachial Position Sitting Pulse 88 Intake Visit Reasons: S/P Double; Dr. Beckford Intake Note: Patient presents to in office visit today in follow up of colonoscopy and EGD. CC: Patient underwent colonoscopy and EGD with Dr. Beckford on . Patient reports she continues vomiting every day, feeling very tired, having headaches and barely eating. 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 Beckford HPI Details Assessment & Plan (1) Diarrhea: Code(s): R19.7 - Diarrhea, unspecified (2) Multiple food allergies: Comment: egg whites, peanuts, wheat, sesame seeds Code(s): Z91.018 - Allergy to other foods (3) Nausea and vomiting: Code(s): R11.2 - Nausea with vomiting, unspecified (4) Rectal bleeding: Code(s): K62.5 - Hemorrhage of anus and rectum (5) Elevated C-reactive protein (CRP): Code(s): R79.82 - Elevated C-reactive protein (CRP) Orders: Orders EGD/Telferner Combo - G I Use Only 02/14/23 K62.5 - Hemorrhage of anus and rectu m, R11.2 - Nausea with vomiting, uns pecified [facility] IBD SGI 02/14/23 R19.7 - Diarrhea, unspecified, R79.8 2 - Elevated C-charan ctive protein (CRP ) Calprotectin, Feca l 02/14/23 R19.7 - Diarrhea, unspecified, R79.8 2 - Elevated C-charan ctive protein (CRP ) Medications: New metoclopramide HCl (Reglan) provi phan aware of possi ble interaction wi th antidepressent and is monitoring 5 mg PO QIDACHS 12 0 tabs 3RF R11.2 - Nausea wit h vomiting, unspec ified sod sulf-pot chlor zahida-mag sulf 1.479 -0.188- 0.225 gram (Sutab) PO PER PKG DIR 24 tabs 0RF On Hold dicyclomine Hol d Comment: Doctor 's Order 10 mg PO QID 120 caps 3RF R19.7 - Diarrhea, unspecified LABS: Laboratory Tests 05/11/23 11:20 Stool Calprotectin 249 H [facility] genetics NOT c/w IBD EGD/COLONOSCOPY Findings: Larynx: Normal Esophagus: GE junction at 35 cms. No esophagitis or Leal's. Stomach: Moderate diffuse gastric erythema. Biopsies were obtained from the antrum and body of the stomach. Grade 2 flap valve on retroflexed examination of the cardia. Duodenum: Normal bulb and descending duodenum. Biopsies were obtained from 3rd part of duodenum to check for celiac sprue Findings: Terminal Ileum: Distal 10 cms was examined and mucosa appeared normal Cecum: Normal Ascending Colon: Normal Transverse Colon: Normal Descending Colon: Normal Sigmoid Colon: Normal Rectum: Normal Ano-rectum: Normal Colon preparation: Excellent Impression and Post Procedure Diagnosis: Endoscopy Findings: STOMACH: Moderate diffuse gastritis DUODENUM: Normal - biopsied to check for celiac sprue Colonoscopy Findings: No polyps were detected Normal mucosa in the colon and terminal ileum - random biopsies were obtained from the TI, right and left colon to check for IBD Plan: Await pathology results Patient has an appointment on 05/30/23 in the GI Clinic with Mane Chávez Repeat Colonoscopy in 25 years if biopsies are normal BIOPSY eceived: 05/19/23 Diagnosis A. Small bowel, biopsy: Small bowel mucosa within normal limits; preserved villous architecture and no increased intraepithelial lymphocytes seen. B. Stomach, antrum, biopsy: Gastric antral mucosa with mild chronic inactive gastritis and features of reactive gastropathy; negative for Helicobacter pylori, intestinal metaplasia and dysplasia. C. Stomach, body, biopsy: Gastric body mucosa with mild reactive gastropathy; negative for Helicobacter pylori, intestinal metaplasia and dysplasia. D. Terminal ileum, biopsy: Ileal mucosa within normal limits; negative for active or chronic ileitis. E. Colon, right, biopsy: Colonic mucosa within normal limits; negative for active, chronic or microscopic colitis. F. Colon, left, biopsy: Colonic mucosa within normal limits; negative for active, chronic or microscopic colitis. COMMENT: No granulomas or dysplasia are seen in any of the biopsies CORRESPONDENCE On 04/14/23 @ 13:35 Sanjuana Grimes Wrote To AileenHortencia I received an approval for sutab. I will cancel peer to peer. I will scan in approval for sutab. On 04/03/23 @ 16:39 Sanjuana Grimes Wrote To Hortencia Gallagher [employer] contacted -spoke to Magdalene, then Wendy and finally Heaven. Either peer to peer, or 1st appeal- 1st appeal requires notes supporting drug of choice faxed to [phone]. I scheduled you for peer to peer with Jeimy Swenson- pharmacist on 04/22 at 3:45. I understand your schedule is booked at this time, This is the latest time available for peer to peer. The earliest time is 8am. I can always call back to r/s time. I'm happy to also call patient and check on how she's doing. I also have coupons for sutab- cost would be 50$. On 04/03/23 @ 16:10 Sanjuana Grimes Wrote To AileenHortencia Je November, looks like Sarah tucker'link her F/U fredy on 03/14, also labs ordered on last visit were not done. Would like to proceed with a peer to peer for sutab ? would you like to try osmprep ? On 03/30/23 @ 00:02 System Wrote To Tin Giles Daemon,Background deleted item. On 02/27/23 @ 11:05 Tin Giles Wrote To Tin Giles Tin Giles completed item. On 02/26/23 @ 10:56 Sheron Aguirre Wrote To Tin Giles duplicate - Ingrid supervisor fish bait processing aware Gastro Nurses removed from item. On 02/26/23 @ 10:56 Hortencia Gallagher Wrote To Tin Giles (2) This is a patient with severe vomiting syndrome and won't tolerate anything but a pill prep. We need to speak to a live person and see if we can get either Sutab or Osmprep (the one they are declining is Sutab I think). On 02/21/23 @ 14:42 Sanjuana Grimes Wrote To Hortencia Gallagher noted. November thoughts would you like me to call patient - not sure what the process is when PA is denied- pretty sure the substitute was gavilyte On 02/21/23 @ 14:10 System Wrote To Workgroup(s) for AileenHortencia Response Received . TODAY'S VISIT We reviewed all of her tests some results. She tolerated the procedure well so long as she continues to tell prep. The procedure needs to be repeated in 25 years; at that time she will be of the screening age of 43. The procedure was well tolerated. The results were explained and the patient is agreeable to the follow-up interval as stated. The bowel pattern has returned to normal. Education was provided to tell any 1st degree relatives about their findings to be sure that they are screened by age 45. Educated that they will be put on a recall list when it is time for their repeat scope but should they move out of state or away from the hospital they will need to remember along with their primary to repeat the procedure in a timely fashion to avoid any adverse complications. . The reglan made N?V worse, but given no hard findings I don't think this is of GI origin. Anxiety certainly in the differential diagnosis. We also discuss a possible consult with Neurology since she has headaches to rule out a neurogenic cause. The elevated stool calprotectin could be from the prep as the genetics are not consistent with inflammatory bowel disease nor are the colonoscopy findings. They are having a great deal difficulty finding an appropriate psychiatric provider and given the patient's young age I think she needs to bones specialist. I will try root reaching out to our nurse navigator to see if we have any ability to help steer them. On both the patient and her mother agreeable to this. Return office visit p.r.n. [facility] Medical History Gallbladder calculus Low HDL (under 40) Anxiety and depression Morbid obesity Asymmetrical breasts Pulmonary valve stenosis Surgical History History of esophagogastroduodenoscopy (EGD) H/O colonoscopy Family History Maternal Aunt No problems noted. Maternal Uncle Mental health disorder Mother Bronchial asthma Essential hypertension Morbid obesity Anxiety and depression Social History Housing: House Patient Tobacco Use Status: Never used Tobacco e-Cigarette/Vaping Use: Never Used service: No Current occupational status: unemployed Review of Systems Const Denies fatigue, Denies fever(s), Denies night sweats, Reports poor appetite and Denies weight loss ENT Reports Normal hearing present, Denies dental pain, Denies dysphagia, Denies hearing loss, Denies mouth pain, Denies odynophagia, Denies throat swelling, Denies tongue swelling and Reports other (Dentition adequate) Card Reports no additional complaints Resp Reports no additional complaints GI Denies abdominal pain, Denies melena, Denies bloating, Denies hematochezia, Denies constipation, Denies GI cramping, Denies dysphagia, Denies excessive flatus, Denies early satiety, Reports dyspepsia, Denies heartburn, Denies diarrhea, Reports nausea, Denies odynophagia, Reports vomiting and Denies hematemesis Skin/Breast Denies pruritus, Denies lesions, Denies rash and Denies jaundice Neuro Reports Normal hearing present and Denies Abnormal speech present Psych Reports anxiety and Reports panic attacks Endo Denies fatigue Aller/Immun Denies throat swelling and Denies tongue swelling Physical Exam Vital Signs: Last Vital Signs Pulse 88 05/30/23 09:30 BP 119/56 L 05/30/23 09:30 BMI result Body Mass Index 49.2 Const General: cooperative, no acute distress, well developed and well groomed Nutritional Appearance: well nourished and obese morbidly obese Orientation/consciousness: oriented to person, oriented to place and oriented to time Limitations: No language barrier HEENT Head: Yes normocephalic and Yes atraumatic Eyes General: appearance normal, both eyes and all related structures Pupils: Equal, round and reactive pupils present Neck Neck: Yes normal visual inspection and Yes no lymphadenopathy Thyroid: Thyroid normal Resp Effort & Inspection: normal respiratory effort and able to speak in complete sentences Auscultation: clear to auscultation bilaterally Cardio Rate: regular rate Rhythm: regular rhythm Heart sounds: Normal, physiologic split S2 sound present Peripheral pulses: radial pulses present and posterior tibial pulses present GI Inspection: No distended, Yes Abdominal panniculus present and Yes obesity Palpation (GI): Soft to palpation, nontender, no guarding, not rigid and No hepatosplenomegaly present Percussion: Yes normal to percussion Auscultation: normal bowel sounds Rectal Exam - Female: deferred Skin General skin exam: no rashes or lesions noted, turgor normal, skin not dry, no jaundice, No spider nevi and no striae Rashes: no rashes Nails: normal Neuro General: oriented to person, oriented to place and oriented to time Cranial nerves: Yes Equal, round and reactive pupils present and Yes Normal hearing present Speech: No Abnormal speech present Extrem General: Yes normal to inspection, No clubbing, No cyanosis and No edema Psych Appearance: grossly normal and well kempt Mental Status: mental status grossly normal Speech and movement: Normal speech and movement present Affect: normal affect Attitude: cooperative Thought process: Normal thought process present and not confabulating Thought content: Normal thought content present Insight: Poor insight present (Psych) Judgement: Poor judgement present (Psych) Results Reviewed Results Reviewed: Laboratory Tests 05/11/23 11:20 Stool Calprotectin 249 H [facility] genetics NOT c/w IBD EGD/COLONOSCOPY Findings: Larynx: Normal Esophagus: GE junction at 35 cms. No esophagitis or Leal's. Stomach: Moderate diffuse gastric erythema. Biopsies were obtained from the antrum and body of the stomach. Grade 2 flap valve on retroflexed examination of the cardia. Duodenum: Normal bulb and descending duodenum. Biopsies were obtained from 3rd part of duodenum to check for celiac sprue Findings: Terminal Ileum: Distal 10 cms was examined and mucosa appeared normal Cecum: Normal Ascending Colon: Normal Transverse Colon: Normal Descending Colon: Normal Sigmoid Colon: Normal Rectum: Normal Ano-rectum: Normal Colon preparation: Excellent Impression and Post Procedure Diagnosis: Endoscopy Findings: STOMACH: Moderate diffuse gastritis DUODENUM: Normal - biopsied to check for celiac sprue Colonoscopy Findings: No polyps were detected Normal mucosa in the colon and terminal ileum - random biopsies were obtained from the TI, right and left colon to check for IBD Plan: Await pathology results Patient has an appointment on 05/30/23 in the GI Clinic with Mane Chávez Repeat Colonoscopy in 25 years if biopsies are normal BIOPSY eceived: 05/19/23 Diagnosis A. Small bowel, biopsy: Small bowel mucosa within normal limits; preserved villous architecture and no increased intraepithelial lymphocytes seen. B. Stomach, antrum, biopsy: Gastric antral mucosa with mild chronic inactive gastritis and features of reactive gastropathy; negative for Helicobacter pylori, intestinal metaplasia and dysplasia. C. Stomach, body, biopsy: Gastric body mucosa with mild reactive gastropathy; negative for Helicobacter pylori, intestinal metaplasia and dysplasia. D. Terminal ileum, biopsy: Ileal mucosa within normal limits; negative for active or chronic ileitis. E. Colon, right, biopsy: Colonic mucosa within normal limits; negative for active, chronic or microscopic colitis. F. Colon, left, biopsy: Colonic mucosa within normal limits; negative for active, chronic or microscopic colitis. COMMENT: No granulomas or dysplasia are seen in any of the biopsies Assessment & Plan Assessment & Plan (1) Nausea and vomiting: Code(s): R11.2 - Nausea with vomiting, unspecified Plan: We reviewed all of her tests some results. She tolerated the procedure well so long as she continues to tell prep. The procedure needs to be repeated in 25 years; at that time she will be of the screening age of 43. The procedure was well tolerated. The results were explained and the patient is agreeable to the follow-up interval as stated. The bowel pattern has returned to normal. Education was provided to tell any 1st degree relatives about their findings to be sure that they are screened by age 45. Educated that they will be put on a recall list when it is time for their repeat scope but should they move out of state or away from the hospital they will need to remember along with their primary to repeat the procedure in a timely fashion to avoid any adverse complications. . The reglan made N?V worse, but given no hard findings I don't think this is of GI origin. Anxiety certainly in the differential diagnosis. We also discuss a possible consult with Neurology since she has headaches to rule out a neurogenic cause. The elevated stool calprotectin could be from the prep, or from her multiple food allergies, as the genetics are not consistent with inflammatory bowel disease nor are the colonoscopy findings. They are having a great deal difficulty finding an appropriate psychiatric provider and given the patient's young age I think she needs to bones specialist. I will try root reaching out to our nurse navigator to see if we have any ability to help steer them. On both the patient and her mother agreeable to this. Return office visit p.r.n. (2) Multiple food allergies: Comment: egg whites, peanuts, wheat, sesame seeds Code(s): Z91.018 - Allergy to other foods (3) Diarrhea: Code(s): R19.7 - Diarrhea, unspecified Medications: Discontinued dicyclomine Discontinued Reason: Doctor's Order 10 mg PO QID 120 caps 3RF R19.7 - Diarrhea, unspecified metoclopramide HCl provider aware of possible interaction with antidepressent and is monitoring Discontinued Reason: Doctor's Order 5 mg PO QIDACHS 120 tabs 3RF R11.2 - Nausea with vomiting, unspecified Coding Level of Care Code Est Pt Level 3 (27943) Diagnoses Nausea and vomiting R11.2 Multiple food allergies Z91.018 Diarrhea R19.7
[2023-05-30 09:30] VITALS: BP 119/56; PULSE 88; BMI 49.2
== END 2023-05-30 10:47 | disposition home or self-care (01) ==
PROVIDERS: PCP Internal Medicine; Visit Provider Nurse Practitioner
DX: R11.2 Nausea with vomiting, unspecified (principal); Z91.018 Allergy to other foods; R19.7 Diarrhea, unspecified
CPT/HCPCS: 99213

== ENCOUNTER → 2023-05-30 09:22 | Outpatient (BNVA) | payer OTHER, SELFPAY | PROVIDERS: PCP Internal Medicine; Visit Provider Nurse Practitioner ==

== ENCOUNTER 2023-09-05 07:59 | Outpatient (AMB) | payer OTHER, SELFPAY ==
--- NOTE | 2023-09-05 08:23 | MHC.PC.OV ---
Vital Signs 09/05/23 08:24 Height 4 ft 11 in Weight 249 lb BMI 50.3 BP 110/86 Blood Pressure Location Lt brachial Position Sitting Pulse 80 Pulse Source Pulse Oximeter Pulse Oximetry (%) 98 Oxygen Delivery Method Room Air Intake Visit Reasons: Annual PE Intake Note: Pt is here today for her PE: Last [facility] last year ( will have patient sign a release) Is last menstrual period known: Yes Last menstrual period: 08/22/23 Allergies sesame seed Allergy (Severe, Verified 09/05/23 08:52) Unknown wheat Allergy (Severe, Verified 09/05/23 08:52) Unknown cat dander Adverse Reaction (Verified 09/05/23 08:52) Itchy Eyes house dust mite Adverse Reaction (Verified 09/05/23 08:52) itchy eyes mold Adverse Reaction (Verified 09/05/23 08:52) ithcy eyes egg whites Allergy (Severe, Uncoded 09/05/23 08:52) Unknown peanuts Adverse Reaction (Uncoded 09/05/23 08:52) Anaphylaxis Medication List - Last Reconciled 09/05/23 by Margarita Arellano MD aripiprazole 5 mg PO DAILY cetirizine (Zyrtec) 10 mg PO DAILY PRN ergocalciferol (vitamin D2) (Vitamin D2) 1,250 mcg PO QWEEK norgestimate-ethinyl estradiol 0.18/0.215/0.25 mg-25 mcg (Jhs-Yd-Yjfoovzy) 1 tab PO DAILY nystatin 1 appl topical QID omeprazole 40 mg PO DAILY sertraline 100 mg PO DAILY simethicone 180 mg PO QID 30 days Tobacco use date assessed: 09/05/23 Dental Screening Dental Screen Date: 09/05/23 Did you have a dental visit in the last 12 months?: Yes Did you have a dental problem in the last 6 months where you did not have access to dental care?: No Was dental information given to patient?: Patient has dentist HPI Annual PE HPI Details 18-year-old lady here today for physical exam. She has GERD currently taking omeprazole 40 mg daily, and simethicone 100 mg 4 times a day as needed. She sees Dr. Yesenia Kwong for her routine Pap and pelvic exam, and is prescribed try Lo Sprintec, and also placed on sertraline and aripiprazole for her depression and anxiety. Still having frequent anxiety attacks, does not see a therapist. She has been diagnosed to have pulmonary valve stenosis, mild followed by cardiology, no limitations in activities or SBE prophylaxis needed. Complains of waking up with epigastric and right upper quadrant pain accompanied by nausea, regular bowel movements. Had had a CT of abdomen and pelvis in December of 2022 which showed presence of spoke gallbladder sludge and noncalcified gallstone. She has been seeing GI for her chronic GERD and IBS and has been prescribed omeprazole and simethicone which she states has not really been helping. She also has been told by them that surgery for gallstone was not indicated at that time. [facility] Medical History (Updated 09/05/23 @ 09:33 by Margarita Arellano MD) Right upper quadrant abdominal pain Gallbladder calculus Low HDL (under 40) Anxiety and depression Morbid obesity Asymmetrical breasts Pulmonary valve stenosis Surgical History History of esophagogastroduodenoscopy (EGD) H/O colonoscopy Family History Maternal Aunt No problems noted. Maternal Uncle Mental health disorder Mother Bronchial asthma Essential hypertension Morbid obesity Anxiety and depression Social History Housing: House Patient Tobacco Use Status: Never used Tobacco e-Cigarette/Vaping Use: Never Used service: No Current occupational status: unemployed Cognitive needs: No Hearing needs: No Vision needs: Yes Female Reproductive History Menstrual Date of last menstrual period: 08/22/23 Questionnaire PHQ-9 Over the last 2 weeks, how often have you been bothered by any of the following problems? 1. Little interest or pleasure in doing things: nearly every day 2. Feeling down, depressed, or hopeless: nearly every day 3. Trouble falling or staying asleep, or sleeping too much: nearly every day 4. Feeling tired or having little energy: nearly every day 5. Poor appetite or overeating: nearly every day 6. Feeling bad about yourself - or that you are a failure or have let yourself or your family down: nearly every day 7. Trouble concentrating on things, such as reading the newspaper or watching television: nearly every day 8. Moving or speaking so slowly that other people could have noticed. Or the opposite - being so fidgety or restless that you have been moving around a lot more than usual: nearly every day 9. Thoughts that you would be better off or of hurting yourself in some way: several days Total score: 25 Depression Screening Interpretation: Positive (Referred to see our mental health specialist for assistance in getting in to see Psychiatry and therapist) Depression Screening Follow-up: Existing condition, In treatment and Community Mental Health Worker F/U Depression Screening Done: Yes 13113 - PHQ-9 Billing: Yes Source: Developed by Drs. Maninder Howard, Saadia Sexton, Lan Vizcaino and colleagues, with an educational milad from [employer]. Thrive Questionnaire Date Thrive assessed: 09/05/23 I am a: Patient What is your living situation today?: I have a steady place to live Within the past 12 months, did the food you bought not last and you didn't have the money to get more?: Never true Within the past 12 months, did you worry whether your food would run out before you got money to buy more?: Never true Do you have trouble paying for medicines?: No Do you have trouble getting transportation to medical appointments?: No Do you have trouble paying your heating and electricity bill?: No Do you have trouble taking care of your child, family member or friend?: No Do you have trouble with day-to-day activities such as bathing, preparing meals, shopping, managing finances, etc.?: No Are you currently unemployed and looking for a job?: No Are you interested in more education?: No THRIVE Score: 0 AUDIT C Alcohol Use Questionnaire (AUDIT-C) 1. How often do you have a drink containing alcohol?: Never Total Score: 0 AICHA-7 AMB Questionnaire AICHA-7 Date AICHA - 7 assessed: 09/05/23 Feeling nervous, anxious, or on edge: 3 = Nearly every day Not being able to stop or control worryin = Nearly every day Worrying too much about different things: 3 = Nearly every day Trouble relaxin = Nearly every day Being so restless that it is hard to sit still: 3 = Nearly every day Becoming easily annoyed or irritable: 3 = Nearly every day Feeling afraid as if something awful might happen: 3 = Nearly every day Total AICHA-7 score (0-4 normal; 5-9 mild; 10-14 moderate; 15-21 severe): 21 Source: Developed by Drs. Maninder Howard, Saadia Sexton, Lan Vizcaino and colleagues, with an educational milad from [employer]. AICHA-7 Assessment Billing AICHA-7 Assessment Tool: AICHA-7 Assessment 06954 Review of Systems Const Denies fever(s), Denies headache(s), Denies night sweats, Reports poor appetite and Denies weight loss Eyes Details: Up-to-date with eye exam ENT Reports Normal hearing present, Denies dental pain, Denies dizziness, Denies headache(s), Denies hearing loss, Denies mouth pain, Denies throat swelling and Denies tongue swelling Card Denies chest pain, Denies syncope, Denies irregular heart rhythm and Denies lightheadedness Resp Reports no additional complaints GI Reports as per HPI Details: Currently sees [facility] for irregular menstrual cycle, currently on control pill which has been helping Reports no additional complaints Musc Reports no additional complaints Skin/Breast Denies pruritus, Denies lesions, Denies rash and Denies jaundice Neuro Reports Normal hearing present, Denies Abnormal speech present, Denies dizziness, Denies syncope and Denies headache(s) Psych Reports as per HPI, Reports anxiety and Reports panic attacks Endo Reports no additional complaints Chay/Lymph Reports no additional complaints Aller/Immun Denies throat swelling and Denies tongue swelling Physical exam (Primary Care) Vital Signs: Last Vital Signs Pulse 80 09/05/23 08:24 BP 110/86 09/05/23 08:24 Pulse Ox 98 09/05/23 08:24 Oxygen Delivery Method Room Air 09/05/23 08:24 BMI result Body Mass Index 50.3 BMI Assessment/Plan discussion: High BMI High, discussed plan: lifestyle, weight reduction, dietary and physical activity Tobacco/Smoking Status: Tobacco use Status Tobacco use date assessed 09/05/23 09/05/23 08:27 Patient Tobacco Use Status Never used Tobacco 09/05/23 08:27 e-Cigarette/Vaping Use Never Used 09/05/23 08:27 PHQ-9: PHQ-9 Score PHQ-9: Total score 25 09/05/23 08:58 Depression Screening Interpretation: Positive (Referred to see our mental health specialist for assistance in getting in to see Psychiatry and therapist) Depression Screening Follow-up: Existing condition, In treatment and Community Mental Health Worker F/U Thrive Assessment: Date of Thrive Assessment Date Thrive assessed 09/05/23 09/05/23 08:41 Const General: well groomed Nutritional Appearance: obese HENMT Head: Yes normocephalic Ears: hearing grossly normal bilaterally, external ears normal and TM's normal bilaterally General nose exam: Normal external nose present and No nasal discharge present Face and sinus: Yes face symmetric Mouth: Normal oral and palatal mucosa present, oropharynx normal and moist mucous membranes Eyes General: appearance normal, both eyes and all related structures Neck Neck: Yes full ROM, Yes no lymphadenopathy and Yes supple Chest Chest palpation & inspection: normal inspection of the chest Breast/axilla palpation: normal palpation of the breasts Resp Effort & Inspection: normal respiratory effort and able to speak in complete sentences Auscultation: clear to auscultation bilaterally Cardio Palpation: normal PMI Rate: regular rate Rhythm: regular rhythm Heart sounds: S1 normal heart sound present and S2 normal heart sound present GI Inspection: Yes obesity Palpation (GI): Soft to palpation, Tenderness to palpation present (GI) in the epigastrum, in the RUQ and Vernon's sign positive (Positive) and Guarding due to palpation present (GI) Auscultation: normal bowel sounds Back/Spine/Pelvis Back: back tenderness (Mid back) Skin General skin exam: no rashes or lesions noted Neuro Cranial nerves: Yes Normal hearing present Speech: No Abnormal speech present Extrem General: Yes full ROM, Yes no joint enlargement, Yes no clubbing, cyanosis or edema, Yes no calf tenderness and Yes normal gait Psych Appearance: grossly normal and well kempt Mental Status: mental status grossly normal Speech and movement: Normal speech and movement present Affect: normal affect Attitude: cooperative Office Procedures Flu Questionnaire Does the patient have a severe egg allergy?: No Does the patient have severe life threatening allergies?: No Does the patient have a fever or illness today?: No Has the patient ever had Guillain-Riverton Syndrome?: No Has the patient ever had any past reaction to a flu shot?: No Immunizations flu vacc [id number] 6mos up(PF) 60 mcg(15 mcgx4)/0.5 mL IM syringe Performing Provider: Margarita Arellano MD Performing Location: [facility] [place] [facility] Administered by: Ruth Beck CMA on 09/05/23 09:33 Dose Route Admin Location Dispensed Lot Number Expiration Date NDC Clinical Writer 0.5 mL IM Left Deltoid 0.5 mL [id number] 02/01/24 [id number] [employer]ilian [employer] VIS Given Date VIS Provided VIS Publication Date 09/05/23 Single Vaccine 21 Eligibility Eligibility Date Funding Source Not VFC Eligible 09/05/23 Private Assessment and Plan Assessment & Plan (1) Right upper quadrant abdominal pain: Code(s): R10.11 - Right upper quadrant pain Plan: Stat abdominal ultrasound ordered, referred to general surgery for further evaluation. Advised to go on a low-cholesterol /bland diet (2) Anxiety and depression: Code(s): F41.9 - Anxiety disorder, unspecified; F32.A - Depression, unspecified Plan: Currently on sertraline and aripiprazole, referred to our mental health specialist for assistance in getting into sees Psychiatry and therapist for further evaluation and management. Patient denies any suicidal thoughts at present time. (3) Morbid obesity: Code(s): E66.01 - Morbid (severe) obesity due to excess calories Plan: Discussed need to increase activity and wt reduction. Recommended focusing on improving your health instead of dieting. : Eat Mediterranean diet, limit foods high in fat, sugar, and calories, eat slowly, pay attention to portion sizes, plan your meals ahead of time, start regular physical activity 150 minutes of moderate intensity exercise or 90 minutes/week of vigorous exercise (4) Annual visit for general adult medical examination with abnormal findings: Code(s): Z00.01 - Encounter for general adult medical examination with abnormal findings Plan: Will check appropriate labs. Continue with regular dental visit every 6 months and regular eye exams, at least every 2 years. Take adequate calcium in diet and vitamin-D 3 at 2000 IU per cap once a day, in addition to weight-bearing exercises to help maintain good muscle tone and weight control. Instructed to do self-breast exam, and start with yearly mammogram at age 40. Currently sees [facility] for her routine Pap and pelvic exam, up-to-date, requested copy of last Pap smear from their clinic. Flu vaccine given today (5) Gallbladder calculus: Code(s): K80.20 - Calculus of gallbladder without cholecystitis without obstruction Qualifiers: Biliary obstruction: without biliary obstruction Cholecystitis presence: without cholecystitis Qualified Code(s): K80.20 - Calculus of gallbladder without cholecystitis without obstruction Plan: Repeat stat ultrasound of abdomen ordered, referred to general surgery for further evaluation and management Orders: Orders US abdomen complete Today R10.11 - Right upper quadrant pain Influenza [id number] Immunization Today Z23 - Encounter for immunization Comprehensive [place]. Panel Fast Today E66.01 - Morbid (severe) obesity due to excess calories, E78.6 - Lipoprotein deficiency, F32.A - Depression, unspecified, F41.9 - Anxiety disorder, unspecified, R10.11 - Right upper quadrant pain, Z00.01 - Encounter for general adult medical examination with abnormal findings Complete Blood Count Auto Diff Today E66.01 - Morbid (severe) obesity due to excess calories, E78.6 - Lipoprotein deficiency, F32.A - Depression, unspecified, F41.9 - Anxiety disorder, unspecified, R10.11 - Right upper quadrant pain, Z00.01 - Encounter for general adult medical examination with abnormal findings Lipid Panel Today E66.01 - Morbid (severe) obesity due to excess calories, E78.6 - Lipoprotein deficiency, F32.A - Depression, unspecified, F41.9 - Anxiety disorder, unspecified, R10.11 - Right upper quadrant pain, Z00.01 - Encounter for general adult medical examination with abnormal findings Vitamin D 25-OH Total Today E66.01 - Morbid (severe) obesity due to excess calories, E78.6 - Lipoprotein deficiency, F32.A - Depression, unspecified, F41.9 - Anxiety disorder, unspecified, R10.11 - Right upper quadrant pain, Z00.01 - Encounter for general adult medical examination with abnormal findings Referrals General Surgery Referral K80.20 - Calculus of gallbladder without cholecystitis without obstruction, R10.11 - Right upper quadrant pain Medications: New flu vacc [id number] 6mos up(PF) 0.5 mL IM ONCE 0.5 mL 0RF Z23 - Encounter for immunization Coding Level of Care Code Est Pt Prev Care 18-39y(98645) Diagnoses Right upper quadrant abdominal pain R10.11 Anxiety and depression F41.9; F32.A Morbid obesity E66.01 Annual visit for general adult medical examination with abnormal findings Z00.01 Calculus of gallbladder without cholecystitis without obstruction K80.20 Biliary obstruction: without biliary obstruction Cholecystitis presence: without cholecystitis Additional Codes AICHA-7 Assessment Billing - AICHA-7 Assessment Tool: AICHA-7 Assessment [id number] ([id number])
[2023-09-05 08:24] VITALS: BP 110/86; PULSE 80; O2SAT 98; BMI 50.3
== END 2023-09-05 12:02 | disposition home or self-care (01) ==
PROVIDERS: PCP Internal Medicine; Visit Provider Internal Medicine
DX: Z00.00 Encounter for general adult medical examination without abnormal findings (principal); E66.01 Morbid (severe) obesity due to excess calories; Z68.43 Body mass index [BMI] 50.0-59.9, adult; Z23 Encounter for immunization; R10.11 Right upper quadrant pain; F41.9 Anxiety disorder, unspecified; F32.A Depression, unspecified; K80.20 Calculus of gallbladder without cholecystitis without obstruction
CPT/HCPCS: 90471; 90686; 96127; 99395

== ENCOUNTER 2023-09-05 09:40 | Outpatient (REF) | payer OTHER, SELFPAY ==
--- NOTE | ~2023-09-05 | US_ITS ---
EXAMINATION: US ABDOMEN COMPLETE CLINICAL INFORMATION: Right upper quadrant pain. COMPARISON: None available. TECHNIQUE: Real-time imaging of the abdominal viscera. FINDINGS: PANCREAS: Normal. ABDOMINAL AORTA: The proximal, mid, and distal segments are normal in caliber. INFERIOR VENA CAVA: Visualized portions are normal. LIVER: Normal. The liver is normal in size. The liver contour is normal. Parenchymal echogenicity is normal. No focal hepatic lesion. There is no intrahepatic biliary duct dilatation seen. GALLBLADDER: Normal. The gallbladder is physiologically distended without evidence of stones, sludge, polyps, wall thickening or pericholecystic fluid. No tenderness elicited during study. COMMON BILE DUCT: Normal in caliber measuring 0.4 cm in diameter. RIGHT KIDNEY: Normal. No hydronephrosis. No renal calculi or focal parenchymal lesions. The kidney measures 10.4 cm in maximum dimension. LEFT KIDNEY: Normal. No hydronephrosis. No renal calculi or focal parenchymal lesions. The kidney measures 11.0 cm in maximum dimension. SPLEEN: Normal. The spleen measures 10.7 cm in maximum dimension. FREE FLUID: None. US/US abdomen complete IMPRESSION: Unremarkable study.
[2023-09-05 13:11] LABS: MANUAL DIFF FLAG NO
[2023-09-05 13:34] LABS: Basophils Absolute Auto 0.1 X10*3/uL (0.0-0.2); Basophils Percent Auto 0.5 % (0-2); Eosinophils Absolute Auto 0.2 X10*3/uL (0.0-0.4); Hematocrit 40.4 % (37.0-47.0); Hemoglobin 12.7 g/dl (12.0-16.0); Imm Gran Abs Auto 0.05 X10*3/uL (0.00-0.03); Imm Gran Pct Auto 0.4 % (0.0-0.4); Lymphocytes Absolute Auto 2.5 X10*3/uL (1.2-4.9); Lymphocytes Percent Auto 22.6 % (20-40); Mean Corpuscular HGB Conc 31.4 g/dl (31.0-35.0); Mean Corpuscular Hemoglobin 25.3 pg (27.0-33.0); Mean Corpuscular Volume 80.6 fL (80.0-98.0); Mean Platelet Volume 10.7 fL (9.4-12.3); Monocytes Absolute Auto 0.5 X10*3/uL (0.1-1.2); Neutrophils Absolute Auto 7.9 x10*3/uL (2.0-8.3); Neutrophils Percent Auto 70.5 % (45-73); Platelet Count 331 X10*3/uL (160-400); Red Blood Count 5.01 X10*6/uL (4.20-5.50); White Blood Count 11.2 X10*3/uL (4.8-10.8)
[2023-09-05 14:13] LABS: Alanine Aminotransferase 16 U/L (0-31); Albumin Level 3.7 g/dL (3.5-5.0); Alkaline Phosphatase 79 U/L (39-117); Anion Gap 11 (12-20); Aspartate Amino Transferase 12 U/L (5-31); Bilirubin Total 0.2 mg/dL (0.0-1.0); Blood Urea Nitrogen 11 mg/dL (9-16); Calcium 9.4 mg/dL (8.4-10.2); Carbon Dioxide 26 mmol/L (22-29); Chloride 103 mmol/L (96-108); Cholesterol 156 mg/dL (<200); Estimated Glomerular Filt Rate > 60; Glucose Fasting 88 mg/dL (60-99); HDL Cholesterol 45 mg/dL (>40); LDL Cholesterol Calculated 93 mg/dL (<100); Sodium 136 mmol/L (135-145); Total Protein 8.1 g/dL (6.5-8.0); Triglycerides 92 mg/dL (<150)
[2023-09-05 14:29] LABS: Vitamin D 25-OH Total 38.3 ng/mL (>30)
== END 2023-09-05 09:41 | disposition home or self-care (01) ==
LOC: HO.HMGCX 09:40
PROVIDERS: PCP Internal Medicine; Visit Provider Internal Medicine
DX: Z00.01 Encounter for general adult medical examination with abnormal findings (principal); R10.11 Right upper quadrant pain; F41.9 Anxiety disorder, unspecified; F32.A Depression, unspecified; E66.01 Morbid (severe) obesity due to excess calories; E78.6 Lipoprotein deficiency
CPT/HCPCS: 36415; 76700; 80053; 80061; 82306; 85025

== ENCOUNTER 2023-09-17 13:57 | Outpatient (AMB) | payer OTHER, SELFPAY ==
[2023-09-17 13:58] VITALS: BP 116/89; PULSE 94; BMI 50.3
--- NOTE | 2023-09-17 13:58 | MHC.OFFVIS ---
Intake Vital Signs 09/17/23 13:58 Height 4 ft 11 in Weight 249 lb BMI 50.3 BP 116/89 Blood Pressure Location Rt brachial Position Sitting Pulse 94 Intake Visit Reasons: RUQ pain, calculus of gallbladder Intake Note: Patient referred by PCP Dr. Arellano for RUQ pain, calculus of gallbladder. ABD US on 09-05-23. Patient c/o: abd pain, nausea, vomiting, pain spreading to shoulder, back Recruit Instructor Required: No Accompanied by: Mother Allergies sesame seed Allergy (Severe, Verified 09/17/23 14:03) Unknown wheat Allergy (Severe, Verified 09/17/23 14:03) Unknown cat dander Adverse Reaction (Verified 09/17/23 14:03) Itchy Eyes house dust mite Adverse Reaction (Verified 09/17/23 14:03) itchy eyes mold Adverse Reaction (Verified 09/17/23 14:03) ithcy eyes egg whites Allergy (Severe, Uncoded 09/17/23 14:03) Unknown peanuts Adverse Reaction (Uncoded 09/17/23 14:03) Anaphylaxis HPI HPI Comments History of Present Illness Details Patient presents with her mother with complaints of biliary colic recurrent. Patient has had extensive workup for this including multiple ultrasounds, HIDA scan, CT scan, and upper lower endoscopy. Patient had a CT scan at an outside facility in November of last year which demonstrates a gallstone. Patient has complaints of right upper quadrant pain radiating around to her back and occasionally to her shoulder with associated nausea. The her mother states that she herself and her other daughter had similar biliary symptoms and both had laparoscopic cholecystectomy. Chart was reviewed and patient evaluated [facility] Medical History Right upper quadrant abdominal pain Gallbladder calculus Low HDL (under 40) Anxiety and depression Morbid obesity Asymmetrical breasts Pulmonary valve stenosis Surgical History History of esophagogastroduodenoscopy (EGD) H/O colonoscopy Family History Maternal Aunt No problems noted. Maternal Uncle Mental health disorder Mother Bronchial asthma Essential hypertension Morbid obesity Anxiety and depression Social History Housing: House Patient Tobacco Use Status: Never used Tobacco e-Cigarette/Vaping Use: Never Used service: No Current occupational status: unemployed Cognitive needs: No Hearing needs: No Vision needs: Yes Physical Exam Vital Signs: Last Vital Signs Pulse 94 09/17/23 13:58 BP 116/89 09/17/23 13:58 BMI result Body Mass Index 50.3 Eyes Other: Anicteric Chest Other: Chest breath sounds bilaterally, HS 1 in 2 GI Other: Abdomen corpulent, soft, benign Assessment & Plan Assessment & Plan (1) Right upper quadrant abdominal pain: Code(s): R10.11 - Right upper quadrant pain (2) Recurrent biliary colic: Code(s): K80.50 - Calculus of bile duct without cholangitis or cholecystitis without obstruction Plan Risks, benefits, and alternatives laparoscopic possible open cholecystectomy reviewed with the patient and her mother which included but not limited to bleeding, infection, recurrence of symptoms, numbness, pain, scarring, bowel or bile duct injury or leak and patient and mother wished to proceed. All questions answered. Arrangements were made for this. Coding Level of Care Code New Pt Level 5 (49329) Diagnoses Right upper quadrant abdominal pain R10.11 Recurrent biliary colic K80.50
== END 2023-09-17 14:44 | disposition home or self-care (01) ==
PROVIDERS: PCP Internal Medicine; Visit Provider Surgery
DX: R10.11 Right upper quadrant pain (principal); K80.50 Calculus of bile duct without cholangitis or cholecystitis without obstruction
CPT/HCPCS: 99204

== ENCOUNTER → 2023-09-17 13:57 | Outpatient (BNVA) | payer OTHER, SELFPAY | PROVIDERS: PCP Internal Medicine; Visit Provider Surgery ==

== ENCOUNTER 2023-10-10 07:35 | Day surgery (SDC) | payer OTHER, SELFPAY ==
[2023-10-08 10:31] VITALS: BMI 50.3
--- NOTE | 2023-10-09 16:22 | MHC.SHP ---
Pre-Procedural Eval Section A - 24 Hr Update-Section A only Date of Service: 10/09/23 The patient is an INPATIENT: No Changes since office visit: No Cold of Flu in the past 2 weeks, No New Medical Problems, No Changes in Medication and No Patient answered all questions The patient has been examined within 24 hours of the surgical procedure. The History & Physical has been completed within 30 days and I have reviewed it.: Yes Section B - Complete if H&P > 30 days Chief Complaint: Calculus of bile duct,Right upper quadrant pain Allergies: Allergies Allergy/AdvReac Type Severity Reaction Status Date / Time sesame seed Allergy Severe Unknown Verified 09/17/23 14:03 wheat Allergy Severe Unknown Verified 09/17/23 14:03 cat dander AdvReac Itchy Eyes Verified 09/17/23 14:03 house dust mite AdvReac itchy eyes Verified 09/17/23 14:03 mold AdvReac ithcy eyes Verified 09/17/23 14:03 egg whites Allergy Severe Unknown Uncoded 09/17/23 14:03 peanuts AdvReac Anaphylaxis Uncoded 09/17/23 14:03 Plan I have reviewed the history and physical and performed a pertinent physical examination on my patient. No changes have occurred unless specified. Time Spent With Patient Time: Total time managing care of this patient today ____ minutes.
[2023-10-10] VITALS (13 sets, daily range): BP systolic 108–142; BP diastolic 65–82; PULSE 89–105; RESP 14–18; TEMP 36.4; O2SAT 94–97; BMI 51.5
[2023-10-10] MEDS: Lactated Ringers 1,000 ML 100 ML IVCONT (08:48)
--- NOTE | 2023-10-10 09:10 | HO.ANESPROP2 ---
Documented by User: Mireille Castillo NP 10/09/23 13:11 HPI - Anesthesia Eval Consult details Narrative: 18yo F for Cholecystectomy Laparoscopic,possible open, Followed pedi cardiology for mild pulmonic valve stenosis. Last seen 01/2023 and recommend pt to f/u adult cardiology in 5 years. Cleared at that time for surgical procedures/sedation. PMF Active Problems Active Problems: All Active Problems (Updated 10/08/23 @ 10:29 by Jaja Banuelos RN) Recurrent biliary colic (Acute) Elevated C-reactive protein (CRP) (Acute) Rectal bleeding (Acute) Nausea and vomiting (Acute) Multiple food allergies (Acute) Yarely albicans infection (Acute) Diarrhea (Acute) Right upper quadrant abdominal pain (Acute) Gallbladder calculus (Acute) Low HDL (under 40) (Acute) Anxiety and depression (Acute) Morbid obesity (Acute) Asymmetrical breasts (Acute) Pulmonary valve stenosis (Acute) Past Medical History Medical History (Updated 10/08/23 @ 10:29 by Jaja Banuelos RN) GERD (gastroesophageal reflux disease) Gallbladder calculus Low HDL (under 40) Anxiety and depression Morbid obesity Asymmetrical breasts Pulmonary valve stenosis Family History Family History Maternal Aunt No problems noted. Maternal Uncle Mental health disorder Mother Bronchial asthma Essential hypertension Morbid obesity Anxiety and depression Family history of problems with anesthesia: No Surgical History Surgical History (Updated 10/08/23 @ 10:20 by Jaja Banuelos RN) Right upper quadrant abdominal pain History of esophagogastroduodenoscopy (EGD) H/O colonoscopy History of Problems with Anesthesia: No Social History Social History Housing: House Patient Tobacco Use Status: Never used Tobacco e-Cigarette/Vaping Use: Never Used Use of substances other than those prescribed or required for medical reasons: No Are you DNR?: No Advance Directives: No Advance Directives Information Provided: Yes service: No Current occupational status: unemployed Cognitive needs: No Hearing needs: No Vision needs: Yes Meds Allergies Allergy/AdvReac Type Severity Reaction Status Date / Time sesame seed Allergy Severe Unknown Verified 09/17/23 14:03 wheat Allergy Severe Unknown Verified 09/17/23 14:03 cat dander AdvReac Itchy Eyes Verified 09/17/23 14:03 house dust mite AdvReac itchy eyes Verified 09/17/23 14:03 mold AdvReac ithcy eyes Verified 09/17/23 14:03 egg whites Allergy Severe Unknown Uncoded 09/17/23 14:03 peanuts AdvReac Anaphylaxis Uncoded 09/17/23 14:03 Home Medications Medication Instructions Recorded Confirmed Last Taken Type cetirizine 10 mg tablet (Zyrtec) 10 mg PO DAILY PRN Allergic 01/10/23 10/08/23 Unknown History Symptoms omeprazole 40 mg capsule,delayed 40 mg PO DAILY 01/10/23 10/08/23 Unknown History release sertraline 100 mg tablet 100 mg PO DAILY 01/10/23 10/08/23 Unknown History aripiprazole 5 mg tablet 5 mg PO DAILY 05/30/23 10/08/23 Unknown History norgestimate 0.18 mg/0.215 mg/0.25 1 tab PO DAILY 05/30/23 10/08/23 Unknown History mg-ethinyl estradiol 25 mcg tablet (Ftp-Rv-Swsozwgk) Exam Height,Weight and Vital Signs: Height 4 ft 11 in Weight 112.945 kg Pertinent Lab Results Pertinent Lab Results: Laboratory Tests 01/10/23 09/05/23 09:37 11:03 WBC 8.1 11.2 H Hgb 13.7 12.7 Hct 43.6 40.4 Plt Count 326 331 Sodium 140 136 Potassium 3.8 4.0 Chloride 106 103 Carbon Dioxide 25 26 BUN 9 11 Creatinine 0.71 0.63 Narrative Narrative: EKG 01/2023 NSR @ 71 ECHO 01/2023 Very mild supravalvar pulmonary stenosis Nml BiV chamber size and systolic function No signif RV hypertrophy. No pericardial effusion No significant change from 2020 Assessment and Plan Assessment Anesthesia Assessment: Chart Reviewed Final Anesthetic Review Family History of Problems with Anesthesia: No History of Problems with Anesthesia: No Documented by User: Sarah Iqbal DO 10/10/23 09:17 [facility] Past Medical History Medical History (Updated 10/08/23 @ 10:29 by Jaja Banuelos RN) GERD (gastroesophageal reflux disease) Gallbladder calculus Low HDL (under 40) Anxiety and depression Morbid obesity Asymmetrical breasts Pulmonary valve stenosis Family History Family History Maternal Aunt No problems noted. Maternal Uncle Mental health disorder Mother Bronchial asthma Essential hypertension Morbid obesity Anxiety and depression Family history of problems with anesthesia: No Surgical History Surgical History (Updated 10/08/23 @ 10:20 by Jaja Banuelos RN) Right upper quadrant abdominal pain History of esophagogastroduodenoscopy (EGD) H/O colonoscopy History of Problems with Anesthesia: No Social History Social History Housing: House Patient Tobacco Use Status: Never used Tobacco e-Cigarette/Vaping Use: Never Used Use of substances other than those prescribed or required for medical reasons: No Are you DNR?: No Advance Directives: No Advance Directives Information Provided: Yes service: No Current occupational status: unemployed Cognitive needs: No Hearing needs: No Vision needs: Yes Meds Allergies Allergy/AdvReac Type Severity Reaction Status Date / Time sesame seed Allergy Severe Unknown Verified 09/17/23 14:03 wheat Allergy Severe Unknown Verified 09/17/23 14:03 cat dander AdvReac Itchy Eyes Verified 09/17/23 14:03 house dust mite AdvReac itchy eyes Verified 09/17/23 14:03 mold AdvReac ithcy eyes Verified 09/17/23 14:03 egg whites Allergy Severe Unknown Uncoded 09/17/23 14:03 peanuts AdvReac Anaphylaxis Uncoded 09/17/23 14:03 Home Medications Medication Instructions Recorded Confirmed Last Taken Type cetirizine 10 mg tablet (Zyrtec) 10 mg PO DAILY PRN Allergic 01/10/23 10/08/23 Unknown History Symptoms omeprazole 40 mg capsule,delayed 40 mg PO DAILY 01/10/23 10/08/23 Unknown History release sertraline 100 mg tablet 100 mg PO DAILY 01/10/23 10/08/23 Unknown History aripiprazole 5 mg tablet 5 mg PO DAILY 05/30/23 10/08/23 Unknown History norgestimate 0.18 mg/0.215 mg/0.25 1 tab PO DAILY 05/30/23 10/08/23 Unknown History mg-ethinyl estradiol 25 mcg tablet (Rqv-Kp-Ihbacxad) Exam Exam Date and Time: October 10, 2023 0910 Height,Weight and Vital Signs: Height 4 ft 11 in Weight 115.666 kg Height 4 ft 11 in Weight 112.945 kg Airway Mallampati Class: II TM Dist: >3cm Neck ROM: Full Loose/Missing/Broken Teeth: No Heart: S1S2 Lungs: CTAB Assessment and Plan Assessment Anesthesia Assessment: Anesthesia Plan Discussed and Chart Reviewed Final Anesthetic Review Family History of Problems with Anesthesia: No History of Problems with Anesthesia: No NPO: Yes ASA Class: III Final Preanesthetic Review: No Changes in Pt Med Stat, Meds/Allgs Chart Reviewed, Consent Obtained/Reviewed and Anes Risks/Benef Reviewed Patient Risk: Intermediate Procedure Risk: Low Anesthetic Plan Anesthetic Plan: GA and Agree w/ Assess. and Plan Disposition: Standard PACU
[2023-10-10] MEDS: oxyCODONE HCl Immed Release 5 MG TABLET 10 MG PO (10:44)
[2023-10-10] MEDS: HYDROmorphone HCl 0.5 MG/0.5 ML SYRINGE IVPUSH ×3 (10:45→11:50)
--- NOTE | 2023-10-10 11:17 | W.PM.OPN ---
Operative Note Operative Note Date of Service: 10/10/23 Narrative: Preoperative diagnosis: [] Symptomatic gallbladder Postop diagnosis: [] The same Procedure [] laparoscopic cholecystectomy Surgeon: [] Gurvinder Box Blank Machine Operator Helper: [] J Carlos Type of Anesthesia: [] General Indication for surgery: [] Markedly corpulent abdomen. Gallbladder with omental adhesions to it. Intrahepatic gallbladder. Findings: [] Patient brought to the operating room, placed on operative table in supine position, after an adequate level of general anesthesia was induced, the patient's abdomen is prepped draped in usual sterile fashion. Using a supraumbilical curvilinear incision, patient had a very deep pannus dissected down to the fascia was achieved and Medina technique was used to insufflate the abdominal cavity to 15 mm of CO2. Upper midline and right subcostal ports were placed under direct laparoscopic view, the patient placed in reverse Trendelenburg position, tilted to the left. Findings were as noted above. Gallbladder was grasped with laparoscopic graspers, and retracted superiorly and laterally. Omental adhesions swept off the gallbladder with the hilum was approached . Common bile duct was identified and preserved throughout the procedure. Cystic artery and cystic duct were each identified, circumferentially skeletonized, traced directly into the gallbladder, and critical view obtained. Each was clipped proximally x2, distally x1, and transected. Gallbladder was then cauterized from the gallbladder fossa using Bovie. Specimen was placed in an Endo-Catch bag, a retrieved through the umbilical port. Abdominal cavity was copiously irrigated, and secured hemostasis. All ports removed under direct laparoscopic view. Wounds were closed in the following manner; umbilical wound has fascia reapproximated using interrupted 0 Vicryl sutures. Skin wounds were closed using subcuticular 4-0 Vicryl sutures followed by Steri-Strips and sterile dressings. Wounds were infiltrated 0.5% Marcaine at completion. Sponge, needle, and instrument counts reported correct. Patient tolerated the procedure well and emerged from anesthesia stable condition. EBL minimal
== END 2023-10-10 12:35 | disposition home or self-care (01) ==
PROVIDERS: PCP Internal Medicine; Visit Provider Surgery
PROC: 0FT44ZZ Resection of Gallbladder, Percutaneous Endoscopic Approach (ICD-10-PCS; CPT 47562; principal; 2023-10-10 09:50)
DX: K80.64 Calculus of gallbladder and bile duct with chronic cholecystitis without obstruction (principal); K82.8 Other specified diseases of gallbladder; Q44.1 Other congenital malformations of gallbladder; E66.01 Morbid (severe) obesity due to excess calories; Z68.43 Body mass index [BMI] 50.0-59.9, adult; I37.0 Nonrheumatic pulmonary valve stenosis; F41.8 Other specified anxiety disorders
CPT/HCPCS: 47562; 88304; J0131; J0690; J1100; J1170; J1885; J2250; J2405; J2704; J2795; J3010

== ENCOUNTER → 2023-10-10 07:35 | Outpatient (BNV) | payer OTHER, SELFPAY | PROVIDERS: PCP Internal Medicine; Visit Provider Surgery | DX: K82.8 Other specified diseases of gallbladder (principal) | CPT/HCPCS: 47562 ==

== ENCOUNTER 2023-10-27 10:01 | Outpatient (AMB) | payer OTHER, SELFPAY ==
--- NOTE | 2023-10-27 10:20 | A.OFFVIS_ITS ---
Intake Vital Signs 10/27/23 10:24 Weight 248 lb BP 117/58 L Blood Pressure Location Rt brachial Position Sitting Pulse 81 Intake Visit Reasons: s/p lap javier Intake Note: Patient here s/p lap javier. Reports incisions healing well. No longer taking rx pain meds. Patient c/o: denies pain or discomfort. SX: 10-10-23 Script Coordinator Required: No Accompanied by: father Richard Allergies sesame seed Allergy (Severe, Verified 10/27/23 10:24) Unknown wheat Allergy (Severe, Verified 10/27/23 10:24) Unknown cat dander Adverse Reaction (Verified 10/27/23 10:24) Itchy Eyes house dust mite Adverse Reaction (Verified 10/27/23 10:24) itchy eyes mold Adverse Reaction (Verified 10/27/23 10:24) ithcy eyes egg whites Allergy (Severe, Uncoded 10/27/23 10:24) Unknown peanuts Adverse Reaction (Uncoded 10/27/23 10:24) Anaphylaxis HPI HPI Comments History of Present Illness Details Patient presents with her father. She has complete resolution of her upper quadrant symptoms. She has tolerating a diet. Having regular bowel habits. Patient has minimal incisional discomfort. She is increasing her activity level. [facility] Medical History GERD (gastroesophageal reflux disease) Gallbladder calculus Low HDL (under 40) Anxiety and depression Morbid obesity Asymmetrical breasts Pulmonary valve stenosis Surgical History History of laparoscopic cholecystectomy (10/10/23) Right upper quadrant abdominal pain History of esophagogastroduodenoscopy (EGD) H/O colonoscopy Family History Maternal Aunt No problems noted. Maternal Uncle Mental health disorder Mother Bronchial asthma Essential hypertension Morbid obesity Anxiety and depression Social History Housing: House Patient Tobacco Use Status: Never used Tobacco e-Cigarette/Vaping Use: Never Used service: No Current occupational status: unemployed Cognitive needs: No Hearing needs: No Vision needs: Yes Physical Exam Vital Signs: Last Vital Signs Pulse 81 10/27/23 10:24 BP 117/58 L 03/25/24 10:24 Eyes Other: Anicteric GI Other: Abdomen is soft, benign, all wounds clean dry and intact Assessment & Plan Assessment & Plan (1) Status post laparoscopic cholecystectomy: Code(s): Z90.49 - Acquired absence of other specified parts of digestive tract Plan Patient has been given local instructions, and will follow-up p.r.n.. All questions answered. Coding Level of Care Code Global (26898) Diagnoses Status post laparoscopic cholecystectomy Z90.49
[2023-10-27 10:24] VITALS: BP 117/58; PULSE 81
== END 2023-10-27 10:38 | disposition home or self-care (01) ==
PROVIDERS: PCP Internal Medicine; Visit Provider Surgery
DX: Z90.49 Acquired absence of other specified parts of digestive tract (principal)
CPT/HCPCS: 99024

== ENCOUNTER → 2023-10-27 10:01 | Outpatient (BNVA) | payer OTHER, SELFPAY | PROVIDERS: PCP Internal Medicine; Visit Provider Surgery ==

== ENCOUNTER 2024-09-15 09:55 | Outpatient (REF) | payer OTHER, SELFPAY ==
--- NOTE | ~2024-09-15 | XR_ITS ---
EXAMINATION: XR SHOULDER, RIGHT CLINICAL INFORMATION: M25.511 - Pain in right shoulder COMPARISON: None available. TECHNIQUE: Three views of the right shoulder. FINDINGS: Normal bone mineralization. No fracture, dislocation, or suspicious bone lesion. Normal alignment. The glenohumeral joint is normal. The AC joint is normal. There is a neutral lateral acromion. No undersurface spurring. The subacromial space is preserved. Remainder of the soft tissue and bony structures appear normal. XR/XR shoulder RT min 2V IMPRESSION: Normal right shoulder. Electronically signed by: Caleb Suárez MD 09/15/2024 12:27 PM ANNABELLA
[2024-09-15 13:53] LABS: MANUAL DIFF FLAG NO
[2024-09-15 14:01] LABS: Basophils Percent Auto 0.5 % (0-2); Eosinophils Absolute Auto 0.2 X10*3/uL (0.0-0.4); Eosinophils Percent Auto 2.3 % (0-4); Hematocrit 41.3 % (37.0-47.0); Hemoglobin 13.2 g/dl (12.0-16.0); Imm Gran Abs Auto 0.02 X10*3/uL (0.00-0.03); Imm Gran Pct Auto 0.3 % (0.0-0.4); Lymphocytes Absolute Auto 2.5 X10*3/uL (1.2-4.9); Lymphocytes Percent Auto 31.3 % (20-40); Mean Corpuscular Hemoglobin 27.2 pg (27.0-33.0); Mean Platelet Volume 11.4 fL (9.4-12.3); Monocytes Absolute Auto 0.6 X10*3/uL (0.1-1.2); Monocytes Percent Auto 7.2 % (2-11); Neutrophils Absolute Auto 4.7 x10*3/uL (2.0-8.3); Neutrophils Percent Auto 58.4 % (45-73); Platelet Count 294 X10*3/uL (160-400); Red Blood Count 4.86 X10*6/uL (4.20-5.50); Red Cell Distribution Width 13.7 % (11.0-16.0)
[2024-09-15 14:25] LABS: Alanine Aminotransferase 22 U/L (0-31); Alkaline Phosphatase 65 U/L (39-117); Anion Gap 14 (12-20); Aspartate Amino Transferase 26 U/L (5-31); Bilirubin Total 0.4 mg/dL (0.0-1.0); Blood Urea Nitrogen 11 mg/dL (9-16); Carbon Dioxide 25 mmol/L (22-29); Chloride 106 mmol/L (96-108); Cholesterol 110 mg/dL (<200); Estimated Glomerular Filt Rate > 60; Glucose Fasting 79 mg/dL (60-99); HDL Cholesterol 36 mg/dL (>40); LDL Cholesterol Calculated 69 mg/dL (<100); Potassium 3.7 mmol/L (3.3-5.1); Sodium 141 mmol/L (135-145); Total Protein 8.1 g/dL (6.5-8.0); Triglycerides 25 mg/dL (<150)
== END 2024-09-15 09:56 | disposition home or self-care (01) ==
LOC: HO.HMGCX 09:55
PROVIDERS: PCP Internal Medicine; Visit Provider Internal Medicine
DX: Z00.01 Encounter for general adult medical examination with abnormal findings (principal); Z23 Encounter for immunization; R10.10 Upper abdominal pain, unspecified; M25.511 Pain in right shoulder; E66.01 Morbid (severe) obesity due to excess calories; Z91.018 Allergy to other foods; Z91.012 Allergy to eggs; F41.9 Anxiety disorder, unspecified; F32.A Depression, unspecified; Z71.89 Other specified counseling; Z87.19 Personal history of other diseases of the digestive system
CPT/HCPCS: 36415; 73030; 80053; 80061; 85025; 90471; 90715; 96127

== ENCOUNTER 2024-09-15 09:55 | Outpatient (AMB) | payer OTHER, SELFPAY ==
--- NOTE | 2024-09-15 10:33 | A.OFFPC_ITS ---
Vital Signs 09/15/24 10:42 Height 4 ft 11 in Weight 225 lb BMI 45.4 BP 120/74 Blood Pressure Location Rt brachial Position Sitting Pulse 72 Pulse Source Pulse Oximeter Temp 97.7 F Temp Source Oral Pulse Oximetry (%) 99 Oxygen Delivery Method Room Air Intake Visit Reasons: PE Intake Note: Pt is here today for her PE Allergies sesame seed Allergy (Severe, Verified 09/15/24 10:57) Unknown wheat Allergy (Severe, Verified 09/15/24 10:57) Unknown cat dander Adverse Reaction (Verified 09/15/24 10:57) Itchy Eyes house dust mite Adverse Reaction (Verified 09/15/24 10:57) itchy eyes mold Adverse Reaction (Verified 09/15/24 10:57) ithcy eyes egg whites Allergy (Severe, Uncoded 09/15/24 10:57) Unknown peanuts Adverse Reaction (Uncoded 09/15/24 10:57) Anaphylaxis Medication List - Last Reconciled 09/15/24 by Margarita Arellano MD venlafaxine ER mg PO DAILY Tobacco use date assessed: 09/15/24 Dental Screening Dental Screen Date: 09/15/24 Did you have a dental visit in the last 12 months?: Yes Did you have a dental problem in the last 6 months where you did not have access to dental care?: No Was dental information given to patient?: Patient has dentist [facility] Medical History Allergy to egg white Allergy to nuts Right shoulder pain History of cholelithiasis GERD (gastroesophageal reflux disease) Low HDL (under 40) Anxiety and depression Morbid obesity Asymmetrical breasts Pulmonary valve stenosis Surgical History (Updated 09/15/24 @ 11:26 by Margarita Arellano MD) History of hysterectomy History of laparoscopic cholecystectomy (10/10/23) Right upper quadrant abdominal pain History of esophagogastroduodenoscopy (EGD) H/O colonoscopy Family History Maternal Aunt No problems noted. Maternal Uncle Mental health disorder Mother Bronchial asthma Essential hypertension Morbid obesity Anxiety and depression Social History Housing: House Patient Tobacco Use Status: Never used Tobacco e-Cigarette/Vaping Use: Never Used service: No Current occupational status: unemployed Cognitive needs: No Hearing needs: No Vision needs: Yes Questionnaire PHQ-9 Over the last 2 weeks, how often have you been bothered by any of the following problems? 1. Little interest or pleasure in doing things: several days 2. Feeling down, depressed, or hopeless: several days 3. Trouble falling or staying asleep, or sleeping too much: nearly every day 4. Feeling tired or having little energy: more than half the days 5. Poor appetite or overeating: nearly every day 6. Feeling bad about yourself - or that you are a failure or have let yourself or your family down: not at all 7. Trouble concentrating on things, such as reading the newspaper or watching television: several days 8. Moving or speaking so slowly that other people could have noticed. Or the opposite - being so fidgety or restless that you have been moving around a lot more than usual: not at all 9. Thoughts that you would be better off or of hurting yourself in some way: not at all Total score: 11 Depression Screening Interpretation: Positive (SEES ONLINE PSYCh) Depression Screening Done: Yes Source: Developed by Drs. Maninder Howard, Saadia Sexton, Lan Vizcaino and colleagues, with an educational milad from [employer]. Thrive Questionnaire Date Thrive assessed: 09/14/24 I am a: Patient What is your living situation today?: I have a steady place to live Within the past 12 months, did the food you bought not last and you didn't have the money to get more?: Never true Within the past 12 months, did you worry whether your food would run out before you got money to buy more?: Never true Do you have trouble paying for medicines?: No Do you have trouble getting transportation to medical appointments?: No Do you have trouble paying your heating and electricity bill?: No Do you have trouble taking care of your child, family member or friend?: No Do you have trouble with day-to-day activities such as bathing, preparing meals, shopping, managing finances, etc.?: No Are you currently unemployed and looking for a job?: No Are you interested in more education?: I choose not to answer this question Please select the resources that you would like help with: None Currently or been in a relationship where the following occur: I choose not to answer THRIVE Score: 0 AUDIT C Alcohol Use Questionnaire (AUDIT-C) 1. How often do you have a drink containing alcohol?: Never 3. How often do you have six or more drinks on one occasion?: Never Total Score: 0 AICHA-7 AMB Questionnaire AICHA-7 Date AICHA - 7 assessed: 09/15/24 Feeling nervous, anxious, or on edge: 1 = Several days Not being able to stop or control worryin = Nearly every day Worrying too much about different things: 3 = Nearly every day Trouble relaxin = Nearly every day Being so restless that it is hard to sit still: 2 = More than half the days Becoming easily annoyed or irritable: 3 = Nearly every day Feeling afraid as if something awful might happen: 1 = Several days Total AICHA-7 score (0-4 normal; 5-9 mild; 10-14 moderate; 15-21 severe): 16 Source: Developed by Drs. Maninder Howard, Saadia Sexton, Lan Vizcaino and colleagues, with an educational milad from [employer]. AICHA-7 Assessment Billing AICHA-7 Assessment Tool: AICHA-7 Assessment 28051 Physical exam (Primary Care) Vital Signs: Last Vital Signs Temp 97.7 F 09/15/24 10:42 Pulse 72 09/15/24 10:42 BP 120/74 09/15/24 10:42 Pulse Ox 99 09/15/24 10:42 Oxygen Delivery Method Room Air 09/15/24 10:42 BMI result Body Mass Index 45.4 Tobacco/Smoking Status: Tobacco use Status Tobacco use date assessed 09/15/24 09/15/24 10:35 Patient Tobacco Use Status Never used Tobacco 09/15/24 10:35 e-Cigarette/Vaping Use Never Used 09/15/24 10:35 PHQ-9: PHQ-9 Score PHQ-9: Total score 11 09/15/24 11:20 Depression Screening Interpretation: Positive (SEES ONLINE PSYCh) Thrive Assessment: Date of Thrive Assessment Date Thrive assessed 09/14/24 09/15/24 10:35 Currently or been in a relationship where the following occur: I choose not to answer Immunizations Boostrix Tdap 2.5 Lf unit-8 mcg-5 Lf/0.5 mL intramuscular syringe Performing Provider: Margarita Arellano MD Performing Location: [facility] Administered by: Ruth Beck CMA on 09/15/24 11:20 Dose Route Admin Location Dispensed Lot Number Expiration Date NDC Patient Services Rep 0.5 mL IM Left Deltoid 0.5 mL [id number] 10/20/26 27312-212-17 [employer] VIS Given Date VIS Provided VIS Publication Date 09/15/24 Single Vaccine 21 Eligibility Eligibility Date Funding Source Not [facility] Eligible 09/15/24 Private Coding Diagnoses Annual visit for general adult medical examination with abnormal findings Z00.01 Right shoulder pain M25.511 Pain of upper abdomen R10.10 Allergy to nuts Z91.018 Allergy to egg white Z91.012 Morbid obesity E66.01 Anxiety and depression F41.9; F32.A Advanced directives, counseling/discussion Z71.89 Additional Codes AICHA-7 Assessment Billing - AICHA-7 Assessment Tool: AICHA-7 Assessment 03805 ([id number]) Assessment & Plan Assessment & Plan (1) Annual visit for general adult medical examination with abnormal findings: Code(s): Z00.01 - Encounter for general adult medical examination with abnormal findings (2) Right shoulder pain: Code(s): M25.511 - Pain in right shoulder Category: Medical (3) Pain of upper abdomen: Code(s): R10.10 - Upper abdominal pain, unspecified (4) Allergy to nuts: Code(s): Z91.018 - Allergy to other foods Category: Medical (5) Allergy to egg white: Code(s): Z91.012 - Allergy to eggs Category: Medical (6) Morbid obesity: Code(s): E66.01 - Morbid (severe) obesity due to excess calories Category: Medical (7) Anxiety and depression: Code(s): F41.9 - Anxiety disorder, unspecified; F32.A - Depression, unspecified Category: Medical (8) Advanced directives, counseling/discussion: Code(s): Z71.89 - Other specified counseling Orders: Orders XR shoulder RT min 2V Today M25.511 - Pain in right shoulder [place] upper GI series Today R10.10 - Upper abdominal pain, unspecified Comprehensive [place]. Panel Fast Today R10.10 - Upper abdominal pain, unspecified Complete Blood Count Auto Diff Today Z00.01 - Encounter for general adult medical examination with abnormal findings, Z87.19 - Personal history of other diseases of the digestive system Lipid Panel Today Z00.01 - Encounter for general adult medical examination with abnormal findings, Z87.19 - Personal history of other diseases of the digestive system PT Evaluation and Treatment Today M25.511 - Pain in right shoulder TDaP Immunization Today Z23 - Encounter for immunization Medications: New omeprazole 20 mg PO DAILY 30 caps 1RF epinephrine (EpiPen 2-Hao) for 2 doses 0.3 mg (0.3 mL) IM Q15M PRN 2 ea 0RF anaphylaxis Z91.012 - Allergy to eggs, Z91.018 - Allergy to other foods diclofenac sodium 1% apply to single knee, ankle, foot; for foot includes sole/toes/top of foot 4 grams topical QID PRN 100 grams 0RF Right anterior shoulder pain
[2024-09-15 10:42] VITALS: BP 120/74; PULSE 72; TEMP 36.5; O2SAT 99; BMI 45.4
--- OUTSIDE RECORDS SUMMARY | 2024-09-15 11:34 | XMS_ITS | Patient Health Record ---
Author Organization [facility] Address [address] [place] [address] Care Team Providers Care Global Project Manager Name Role Phone Eileen LUNA, Margarita Chu Primary Care Provider Un available Esther Rivera Unavailable [phone] Allergies No Known Allergies Reason For Referral No Information Medications Medication SIG (Take, Route, Frequency, Duration) Notes Start Date End Date Status hydrOXYzine Pamoate 25 MG 1 capsule at b edtime as needed Orally Once a day Active Propranolol HCl 20 MG 1 tablet Orally Tw ice a day Active Venlafaxine HCl ER 225 MG 1 tablet with food Orally Once a day Active Social History Tobacco Use: Social History Observation Description Date Details (start date - stop date) Never Smoker NA - NA Tobacco Control (Standard) Question Answer Notes Tobacco use: Nonsmoker AUDIT-C (Standard) Question Answer Notes Did you have a drink containing alcohol in the p ast year? No Points 0 Interpretation Negative Vital Signs Height 4ft 11inch in 08/16/2024 Weight 230 lbs 08/16/2024 BMI 46.45 kg/m2 08/16/2024 Encounters Encounter Location Date Provider Diagnosis [facility] [address] [place] [address] 08/16/2024 Esthergloria Rivera Pain in right toe(s) M79.674 and Contusion of right great toe without damage to nail, initial encounter S90.111A Assessments Encounter Date Diagnosis (ICD Code) Assessment Notes Treatment Notes Treatment Clinical Notes Section Notes 08/16/2024 Contusion of right great toe without damage to nail, initial encounter (ICD-10 - S90.111A) 08/16/2024 Pain in right toe(s) (ICD-10 - M79.674) Plan Of Treatment Pending Test Test Name Order Date X ray : Foot, right 3V 08/16/2024 Insurance Providers Payer Name Payer Address Payer Phone Subscriber Number Group Number Insured Name Patient Relationship to Insured Coverage Start Date Coverage End Date [address] [place] [id number] Richard Wilkerson Natural Child - Insured has Financial Responsibility Medical (General) History Medical History History ICD Code Anxiety Depression Gall bladder problems Bipolar disorder Surgical History Surgery Date(Month/Year) uterus removed 04/13/24 Gall bladder 10/2023
--- OUTSIDE RECORDS SUMMARY | 2024-09-15 11:35 | XMS_ITS ---
Author Organization [facility] Address [address] [place] [address] Care Team Providers Care Director Clinical Pharmacology Name Role Phone Eileen LUNA, Margarita Chu Primary Care Provider Un available Esther Rivera Unavailable [phone] Allergies No Known Allergies REASON FOR VISIT PCP: 09/2023, Painful Toe(s) Medications Medication SIG (Take, Route, Frequency, Duration) [...] 08/16/2024 Encounters Encounter Location Date Provider Diagnosis [facility] [address] [place] [address] 08/16/2024 Esther Rivera Pain in right toe(s) M79.674 and Contusion of right great toe without damage to nail, initial encounter S90.111A Assessments Encounter Date Diagnosis (ICD Code) Assessment Notes Treatment Notes Treatment Clinical Notes Section Notes 08/16/2024 Pain in right toe(s) (ICD-10 - M79.674) 08/16/2024 Contusion of right great toe without damage to nail, initial encounter (ICD-10 - S90.111A) Plan Of Treatment Pending Test Test Name Order Date X ray : Foot, right 3V 08/16/2024 Next Appt Details Follow Up: prn, Reason: Progress Notes * CECELIASarah GLYNN LDOB:12/2004 (19 yo F)Acc No.[id number]:08/16/2024 Progress Notes Patient:?Sarah RAI Provider:?Esther Rivera DPM :2005???Age:19 Y???Sex:Female D ate:08/16/2024 Address:[address] [place], [place] [id number] Pcp:Nora Gibbs Subjective: * Chief Complaints: * ???PCP: ainful Toe(s) * HPI: ???Toe pain:?Nature:?aching,?bruising,?discoloration,?swelling,?tenderness,?throbbing.?Location:?Right foot.?Duration:?since DOI ( 2 months ago ).?Onset/Cause:?states traumatic ( 2 months ago, play house dropped on foot).?Course:?worse.?Aggravated by:?any pressure, standing/walking, shoes.?Treatments:?rest/alter normal daily activity, ice.? * ROS:?General/Constitutional:?Nausea?denies.?Vomiting?denies.?Hunger Thirst?denies.?Loss appetite?denies.?Chills?denies.?Fatigue?denies.?Fever?denies.?Night Sweats?denies.?Unexplained weight loss?denies.?Unexplained weight gain?denies.?HEENTM:?Dentures?denies.?Dizziness?denies.?Glasses/contacts?denies.?Retinopathy?de nies.?Blurred/double vision?denies.?TMJ?denies.?Discharge/drainage?denies.?Implants?denies.?Sore throat?denies.?Dental implants?denies.?Hard of hearing ?denies.?Difficulty chewing/swallowing/speaking?denies.?Nose bleeds?denies.?Sore mouth?denies.?Respiratory:?On Oxygen?denies.?Pneumonia/pleurisy?denies.?Bronchitis?denies.?Emphysema?denies.?C oughing?denies.?Cough blood?denies.?Shortness of breath?denies.?Wheezing?denies.?Cardiovascular:?Pacemaker?denies.?MVP?denies.?WPW?denies.?CHF?denies.?Heart attack?denies.?Septal defect?denies.?Rapid beat?denies.?Chest pain ?denies.?Atrial Fib.?denies.?Murmur/Palpitations?admits.?Gastrointestinal:?Hemorrhoids?denies.?Stomach/Abdominal pain?denies.?Dark blood stool?denies.?Irritable bowel ?denies.?Constipation?denies.?Diarrhea?denies.?Hematology:?Swelling?denies.?Clots?denies.?Varicose Veins?denies.?Bruising?denies.?Bleeding problem?denies.?Genitourinary:?Blood urine?denies.?Frequent/Painfu/urination/bladder control?denies.?Kidney stones?denies.?Infection (UTI)?denies.?Nephropathy?denies.?sex trans dis (STD)?denies.?Prostate?denies.?Musculoskeletal:?Hammertoes?denies.?Bunions?denies.?Back Pain?denies.?Muscle Cramps/ Resting?denies.?Muscle cramps / walking?denies.?Generalized aches and pains?denies.?Weakness?denies.?Integ.:?Phillips?denies.?Scars?denies.?Corns/calluses?denies.?Ingrown nails?denies.?Painful nails?denies.?Open Sores?denies.?Rashes?denies.?Neurologic:?Difficulty sleeping?denies.?Brain disorder?denies.?Numbness?denies.?Balance trouble?denies.?Confusion?denies.?Fainting/blackouts?denies.?Tingling?denies.?Tr emors?denies.? * Medical History:? * Surgical History:?uterus rem vipin 04/13/24Gall bladder 10/2023 * Hospitalization/Major Diagno stic Procedure:?Denies Past Hospitalization * Family History:?Mother: aliv e, arthritis, cancer, Foot problems, high blood pressure, poor circulation.?Father: alive, high blood pressure.?Maternal Grand Mother: arthritis, cancer, Foot problems, high blood pressure, poor circulation.? * Social History:?Tobacco Use:?Tobacco Control (Standard)?Tobacco use:?Nonsmoker ???Drugs/Alcohol:?Drugs?Have you used drugs other than those for medical reasons in the past 12 months??No ???Miscellaneous:?Caffeine: yes, frequency:. ?Exercise: no. ?Marital status: Single. ???Drug/Alcohol:?AUDIT-C (Standard)?Did you have a drink containing alcohol in the past year??No ?Points?0 ?Interpretation?Negative * Medications:?TakingPropranol ol HCl 20 MG Tablet 1 tablet Orally Twice a day hydrOXYzine Pamoate 25 MG Capsule 1 capsule at bedtime as needed Orally Once a day Venlafaxine HCl ER 225 MG Tablet Extended Release 24 Hour 1 tablet with food Orally Once a day Medication List reviewed and reconciled with the patientTaking Propranolol HCl 20 MG Tablet 1 tablet Orally Twice a day Taking hydrOXYzine Pamoate 25 MG Capsule 1 capsule at bedtime as needed Orally Once a day Taking Venlafaxine HCl ER 225 MG Tablet Extended Release 24 Hour 1 tablet with food Orally Once a day Medication List reviewed and reconciled with the patient * Allergies:?N.K.D.A.yes[Aller gies Verified] Objective: * Vitals:?Ht:4ft 11inch, Wt:23 0, BMI:46.45, Shoe size:7, Ht-cm: 149.86 cm, Wt-k.33 kg. * Examination: ???Orthopedic: ?MUSCLE STRENGTH:?5/5 all groups in a symmetrical fashion , B/L.?DIGITAL DEFORMITIES:? Reveals pain to palpation, swelling, ecchymosis, and limited ROM.?Nails: ?NAILS are:?Previous traumatic avulsion of T5, nail bed is intact, normal nail growing in.?X-Rays - IMAGING REPORT: ?Clinical Indication(s):? Evaluate for Fracture.?Views:?3 views of Foot, AP, LO, MO, RIGHT??Taken by trained?Podiatric [employer] (EF).?Findings:? normal bone?density consistent for patients age and sex, increase in soft tissue contour and density at the symptomatic site.?Fracture:?small distal chip fracture of distal phalanx, no other fractures appreciated.?General Examination: ?GENERAL APPEARANCE:?Reveals a pleasant, alert, well-nourished, well- developed, well hydrated individual, who demonstrates proper attention to hygiene/body habitus, and is in no acute distress, Pt serves as own?historian for office visit today.?ORIENTED:?person, place, and time.?Neurological: ?SENSORY:?Neurological exam reveals intact sensorium, pain sensation normal, vibration sensation intact, pinprick sensation is normal in the lower extremities, Pt denies, anesthesia, burning, paresthesia, tingling, B/L.?DEEP TENDON REFLEXES:?Achilles, 2/4, B/L.?Vascular: ?DP PULSES (B):?3/4, B/L.?PT PULSES (B):?3/4, B/L.?CAPILLARY FILL TIME:?immediate, all digits, B/L.?TROPHIC CONDITION-TEXTURE/ELASTICITY/TURGOR/HAIR GROWTH (B):?normal, B/L.?TEMPERTURE GRADIENT (C):?warm to cool, proximal to distal, B/L.?PIGMENTATION:?normal, B/L.?EDEMA (C):?absent, B/L.?Dermatologic: ?SKIN FINDINGS:?Skin exam reveals normal texture, elasticity, and turgor. There are no masses. The interspaces are clear.? Assessment: * Assessment: 1.?Contusion of right great toe without damage to nail, initial encounter - S90.111A???Specify :Acute problem, Complicated w/ Multiple Tx Options(4),Dx New problem, Prognosis Uncertain (4)???2.?Pain in right toe(s) - M79.674 (Primary)??? Plan: * Treatment: * Procedure Codes:?17368 X-RAY EXAM OF RIGHT FOOT 3V, Modifiers: 26 , RT * Preventive Medicine:? ??Counseling:?Discussion:?-04: Office or other outpatient visit for the evaluation and management of a new patient, which required a medically appropriate history and/or examination and MODERATE level of DECISION MAKING for: 1 OR MORE CHRONIC PROBLEM(S) THATS WORSENING, 2 STABLE CHRONIC PROBLEMS, A NEWLY DIAGNOSED PROBLEM WITH UNCERTAIN PROGNOSIS, AN ACUTE COMPLICATED INJURY WITH MULTIPLE TREATMENT OPTIONS, OR AN ACUTE PROBLEM WITH ACCOMPANYING SYSTEMIC SYMPTOMS, THAT POSE(S) A MODERATE RISK OF MORBIDITY. THIS CONDITION MAY ALSO INCLUDE RX DRUG MANAGEMENT, OR A DECISON FOR MINOR SURGERY. The visit on the day of the encounter encompassed interpreting the data and educating the patient as to the nature of their condition, treatment options available according to their individual PMH, meds, allergies, and overall health/living conditions, as well as any potential risks or complications that may occur from a failure to adhere to, and participate in, the recommended course of therapy. The discussion included a complete verbal, and/or written explanation of the examination results, any x-rays taken, the proposed diagnosis, and outline of the treatment plan. A schedule for future care needs was also explained. The patient verbalized an understanding of the instructions at this time and agreed to be an active participant in their treatment. If the patient should think of any questions or concerns after the visit, I have encouraged the patient to call the office.?Digital Treatment:?I explained to the patient the risks/benefits of all the different treatment options for their pain including: No treatment at all, Rest, Ice, New/supportive/wider/deeper Shoegear, Digital Padding/Strapping/Taping/Bracing/Gel protective sleeves, Foot/Ankle AFO Bracing, Stretching exercises, Deep Tissue Massage, Arch support/shoe inserts with splay metatarsal padding, and Custom orthoses. I insisted that any digital devices be removed daily and not worn overnight for safety. The patient is to carefully examine the toes daily for any skin irritation while using any splinting or padding device. The advantages and disadvantages of each option were discussed and the patients questions re: shoegear, padding, custom vs prefabricated inserts, activity level, and consistency in home treatment regimens for optimal success were answered to their verbally confirmed satisfaction .?P.R.I.C.E.:?The patient was counseled on the use of P.R.I.C.E. and NSAIDS (if well tolerated) to aid in the recovery from their painful condition, Recommended Topical analgesics including Aspercream/Biofreeze/Voltaren gel as directed.? ??Screening/Special Tests:?Fall Risk?Screening:?No falls in the past year ?FALLS: Screening for Future Fall Risk?Have you had any falls with injury in the past year??No * Follow Up:?prn * Images: * Sign off status: Completed true * Provider:?Esther Rivera DPM Date:?0 08/16/2024 Generated for [employer] gonzalez/Faxing/eTransmitting on:?09/15/2024 11:34 AM EST History and Physical Notes * HPI (History of Present Illness) Category Sub-Category Detail Notes Category Not es Toe pain Nature: aching, bruising , discoloration, swelling, tenderness, throbbing Location: Right foot Duration: since DOI ( 2 months ago ) Onset/Cause: states traumatic ( 2 months ago, play house dropped on foot) Course: worse Aggravated by: any pressure, standi ng/walking, shoes Treatments: rest/alter normal da olesya activity, ice Examination Category Sub-Category Detail Notes Category Not es Neurological SENSORY: Neurological exa m reveals intact sensorium, pain sensation normal, vibration sensation intact, pinprick sensation is normal in the lower extremities, Pt denies, anesthesia, burning, paresthesia, tingling, B/L DEEP TENDON REFLEXES: Achilles, 2/4, B/L Dermatologic SKIN FINDINGS: Skin exam reveal s normal texture, elasticity, and turgor. There are no masses. The interspaces are clear Orthopedic DIGITAL DEFORMITIES: Reveals trace n to palpation, swelling, ecchymosis, and limited ROM MUSCLE STRENGTH: 5/5 all groups in a symmetrical fashion , B/L General Examination GENERAL APPEARANCE: Reveals a pleasant, alert, well- nourished, well-developed, well hydrated individual, who demonstrates proper attention to hygiene/body habitus, and is in no acute distress, Pt serves as own historian for office visit today ORIENTED: person, place, and t wiliam Vascular DP PULSES (B): 3/4, B/L PT PULSES (B): 3/4, B/L CAPILLARY FILL TIME: immediate, all digi ts, B/L TEMPERTURE GRADIENT (C): warm to cool, p roximal to distal, B/L TROPHIC CONDITION-TEXTURE/ELASTICITY/TURGOR/HAIR GROWTH (B): normal, B/L EDEMA (C): absent, B/L PIGMENTATION: normal, B/L Nails NAILS are: Previous traumat ic avulsion of T5, nail bed is intact, normal nail growing in X-Rays - IMAGING REPORT Findings: normal b one density consistent for patients age and sex, increase in soft tissue contour and density at the symptomatic site Fracture: small distal chip fr acture of distal phalanx, no other fractures appreciated Views: 3 views of Foot, AP, LO, MO, RIGHT Taken by trained Podiatric [employer] (EF) Clinical Indication(s): Evaluate for Fra cture
== END 2024-09-15 11:25 | disposition home or self-care (01) ==
PROVIDERS: PCP Internal Medicine; Visit Provider Internal Medicine
DX: Z23 Encounter for immunization (principal)

== ENCOUNTER → 2024-09-15 11:35 | Outpatient (BNV) | payer OTHER, SELFPAY | PROVIDERS: PCP Internal Medicine; Visit Provider Radiology Diagnostic Radiology | DX: M25.511 Pain in right shoulder (principal) | CPT/HCPCS: 73030 ==

== ENCOUNTER 2024-11-24 07:36 | Outpatient (REF) | payer OTHER, SELFPAY ==
--- NOTE | ~2024-11-24 | FL_ITS ---
EXAMINATION: XR UPPER GI SERIES WITH AIR CLINICAL INFORMATION: Upper abdominal pain. COMPARISON: None available. TECHNIQUE: Routine upper GI air contrast study was performed in upright and lying position. FINDINGS: Oral and oral administration of thick barium and effervescent granules there is normal propagation bolus from the oral cavity, esophagus into stomach without any evidence of obstruction, narrowing or stricture. On placing patient in supine and prone lying the course, caliber and peristalsis of stomach, duodenal bulb and sweep is normal. There is mild gastroesophageal reflux without hiatal hernia. There is moderate secretions in the stomach likely secondary to hyper acidity. There is evidence of previous cholecystectomy. FLUOROSCOPY TIME: 2 minutes 15 seconds DOSE AREA PRODUCT: 2203 uGy-m2 (microgray-meter squared) MTDD FL/FL upper GI w air w Ba Swallow IMPRESSION: Moderate secretions in stomach suggestive of hyper acidity. Mild gastroesophageal reflux. Electronically signed by: Hermes Mckinney MD 11/24/2024 10:26 AM EDT
--- OUTSIDE RECORDS SUMMARY | 2024-11-24 07:39 | XMS_ITS ---
Author Organization [facility] Address [address] [place] [address] Care Team Providers Care Expeller Operator Name Role Phone Eileen LUNA, Margarita Chu Primary Care Provider Un available Esther Rivera Unavailable [phone] Allergies No Known Allergies REASON FOR VISIT [...] 08/16/2024 Encounters Encounter Location Date Provider Diagnosis [facility] [address] [place] [address] 08/16/2024 Esther Rivera Pain in right toe(s) [...] * CECELIASarah GLYNN LDOB:12/2004 (19 yo F)Acc No.[id number]:08/16/2024 Progress Notes Patient:?Sarah RAI Provider:?Esther Rivera DPM :2005???Age:19 Y???Sex:Female D ate:08/16/2024 Address:[address] [place], [place] [id number] Pcp:Nora Gibbs Subjective: * Chief Complaints: * [...] Foot, AP, LO, MO, RIGHT??Taken by trained?Podiatric Senior Visual Designer (EF).?Findings:? normal bone?density consistent for patients age [...] M79.674 (Primary)??? Plan: * Treatment: * Procedure Codes:?23978 X-RAY EXAM OF RIGHT FOOT 3V, Modifiers: [...] Rivera DPM Date:?0 08/16/2024 Generated for Print[employer] ng/Faxing/eTransmitting on:?11/24/2024 07:38 AM EDT History and Physical Notes * HPI (History [...] LO, MO, RIGHT Taken by trained Podiatric Senior Visual Designer (EF) Clinical Indication(s): Evaluate for Fra cture
== END 2024-11-24 07:37 | disposition home or self-care (01) ==
LOC: HO.XRAY 07:36
PROVIDERS: PCP Internal Medicine; Visit Provider Internal Medicine
DX: R10.10 Upper abdominal pain, unspecified (principal); K21.9 Gastro-esophageal reflux disease without esophagitis; Z90.49 Acquired absence of other specified parts of digestive tract
CPT/HCPCS: 74246

== ENCOUNTER → 2024-11-24 07:40 | Outpatient (BNV) | payer OTHER, SELFPAY | PROVIDERS: PCP Internal Medicine; Visit Provider Radiology Diagnostic Radiology | DX: K21.9 Gastro-esophageal reflux disease without esophagitis (principal); R10.10 Upper abdominal pain, unspecified | CPT/HCPCS: 74246 ==

== ENCOUNTER 2024-12-14 11:21 | Outpatient (AMB) | payer OTHER, SELFPAY ==
[2024-12-14 11:59] VITALS: BP 120/82; PULSE 56; RESP 16; TEMP 36.8; O2SAT 96; BMI 44.0
--- NOTE | 2024-12-14 11:59 | MHC.PC.OV ---
Vital Signs 12/14/24 11:59 Height 4 ft 11 in Weight 218 lb BMI 44.0 BP 120/82 Blood Pressure Location Lt brachial Position Sitting Respiration 16 Pulse 56 Pulse Source Pulse Oximeter Temp 98.2 F Temp Source Oral Pulse Oximetry (%) 96 Oxygen Delivery Method Room Air Intake Visit Reasons: 3 months f/up Intake Note: Pt is here today for her 3mo. f/u Allergies sesame seed Allergy (Severe, Verified 12/14/24 12:22) Unknown wheat Allergy (Severe, Verified 12/14/24 12:22) Unknown cat dander Adverse Reaction (Verified 12/14/24 12:22) Itchy Eyes house dust mite Adverse Reaction (Verified 12/14/24 12:22) itchy eyes mold Adverse Reaction (Verified 12/14/24 12:22) ithcy eyes egg whites Allergy (Severe, Uncoded 12/14/24 12:22) Unknown peanuts Adverse Reaction (Uncoded 12/14/24 12:22) Anaphylaxis Medication List - Last Reconciled 12/14/24 by Margarita Arellano MD cetirizine (Zyrtec) 10 mg PO DAILY PRN diclofenac sodium 1% 4 grams topical QID PRN epinephrine (EpiPen 2-Hao) 0.3 mg (0.3 mL) IM Q15M PRN omeprazole 20 mg PO DAILY Tobacco use date assessed: 12/14/24 Dental Screening Dental Screen Date: 09/15/24 Did you have a dental visit in the last 12 months?: Yes Did you have a dental problem in the last 6 months where you did not have access to dental care?: No Was dental information given to patient?: Patient has dentist HPI 3 months f/up HPI Details 19 year-old lady with history anxiety with depression currently on venlafaxine, morbid obesity, pulmonary valve stenosis, multiple allergies, and history of cholelithiasis status post laparoscopic cholecystectomy, here today complaining of persistent heartburn symptoms, she has been taking omeprazole 20 mg once a day and also takes Tums frequently, which she states has not been helping control her heartburn symptoms. She also states that still has recurrent episodes of mood swings and anxiety attacks,[facility] but stated that she was let go from service last week. Pt. is requesting for a referral placement for telehealth therapy w/female and psychiatry for medication management. She has history of mild supravalvular pulmonary stenosis with negative genetic testing for Geetha syndrome, previously seen by [facility] pediatric Cardiology. Now needs to transition to adult Cardiology. [facility] Medical History (Updated 12/27/24 @ 11:44 by Margarita Arellano MD) Supravalvular stenosis of pulmonary trunk Chronic GERD Gastric hyperacidity Allergy to egg white Allergy to nuts Right shoulder pain History of cholelithiasis GERD (gastroesophageal reflux disease) Low HDL (under 40) Anxiety and depression Morbid obesity Asymmetrical breasts Pulmonary valve stenosis Surgical History History of hysterectomy History of laparoscopic cholecystectomy (10/10/23) Right upper quadrant abdominal pain History of esophagogastroduodenoscopy (EGD) H/O colonoscopy Family History Maternal Aunt No problems noted. Maternal Uncle Mental health disorder Mother Bronchial asthma Essential hypertension Morbid obesity Anxiety and depression Social History Housing: House Patient Tobacco Use Status: Never used Tobacco e-Cigarette/Vaping Use: Never Used service: No Current occupational status: unemployed Cognitive needs: No Hearing needs: No Vision needs: Yes Questionnaire PHQ-9 Over the last 2 weeks, how often have you been bothered by any of the following problems? Depression Screening Interpretation: Positive ([facility]- Leigh Mullen NP in [place], [place]) Depression Screening Follow-up: Existing condition, In treatment and Community Mental Health Worker F/U Depression Screening Done: Yes Source: Developed by Drs. Mannider Howard, Saadia Sexton, Lan Vizcaino and colleagues, with an educational milad from [employer]. Thrive Questionnaire Date Thrive assessed: 09/14/24 I am a: Patient What is your living situation today?: I have a steady place to live Within the past 12 months, did the food you bought not last and you didn't have the money to get more?: Never true Within the past 12 months, did you worry whether your food would run out before you got money to buy more?: Never true Do you have trouble paying for medicines?: No Do you have trouble getting transportation to medical appointments?: No Do you have trouble paying your heating and electricity bill?: No Do you have trouble taking care of your child, family member or friend?: No Do you have trouble with day-to-day activities such as bathing, preparing meals, shopping, managing finances, etc.?: No Are you currently unemployed and looking for a job?: No Are you interested in more education?: I choose not to answer this question Please select the resources that you would like help with: None Currently or been in a relationship where the following occur: I choose not to answer THRIVE Score: 0 AICHA-7 AMB Questionnaire AICHA-7 Date AICHA - 7 assessed: 09/15/24 Source: Developed by Drs. Maninder Howard, Saadia Sexton, Lan Vizcaino and colleagues, with an educational milad from [employer]. Review of Systems Const Denies fever(s), Reports poor appetite and Denies weight loss Eyes Details: Up-to-date with eye exam ENT Reports no additional complaints and Reports Normal hearing present Card Denies chest pain, Denies syncope, Denies irregular heart rhythm and Denies lightheadedness Resp Reports no additional complaints GI Reports as per HPI Reports no additional complaints Musc Reports no additional complaints Skin/Breast Denies pruritus, Denies lesions, Denies rash and Denies jaundice Neuro Reports Normal hearing present, Denies Abnormal speech present and Denies syncope Psych Reports as per HPI Endo Reports no additional complaints Chay/Lymph Reports no additional complaints Aller/Immun Reports no additional complaints Physical exam (Primary Care) Vital Signs: Last Vital Signs Temp 98.2 F 12/14/24 11:59 Pulse 56 12/14/24 11:59 Resp 16 12/14/24 11:59 BP 120/82 12/14/24 11:59 Pulse Ox 96 12/14/24 11:59 Oxygen Delivery Method Room Air 12/14/24 11:59 BMI result Body Mass Index 44.0 Tobacco/Smoking Status: Tobacco use Status Tobacco use date assessed 12/14/24 12/14/24 12:01 Patient Tobacco Use Status Never used Tobacco 12/14/24 12:01 e-Cigarette/Vaping Use Never Used 12/14/24 12:01 Depression Screening Interpretation: Positive ([facility]- Leigh Mullen NP in [place], [place]) Depression Screening Follow-up: Existing condition, In treatment and Community Mental Health Worker F/U Thrive Assessment: Date of Thrive Assessment Date Thrive assessed 09/14/24 12/14/24 12:01 Currently or been in a relationship where the following occur: I choose not to answer Const General: well groomed Nutritional Appearance: obese [place] Head: Yes normocephalic Ears: external ears normal General nose exam: Normal external nose present Face and sinus: Yes face symmetric Mouth: Normal oral and palatal mucosa present and moist mucous membranes Eyes General: appearance normal, both eyes and all related structures Neck Neck: Yes full ROM, Yes no lymphadenopathy and Yes supple Chest Breast/axilla palpation: normal palpation of the breasts Resp Effort & Inspection: normal respiratory effort and able to speak in complete sentences Auscultation: clear to auscultation bilaterally Cardio Palpation: normal PMI Rate: regular rate Rhythm: regular rhythm Heart sounds: S1 normal heart sound present and S2 normal heart sound present GI Inspection: Yes obesity Palpation (GI): Soft to palpation Auscultation: normal bowel sounds Other: Followed by OBGYN at [facility] General: Yes no CVA tenderness and Yes deferred Back/Spine/Pelvis Back: no CVA tenderness and No back tenderness Skin General skin exam: no rashes or lesions noted Neuro Cranial nerves: Yes Normal hearing present Speech: No Abnormal speech present Extrem General: Yes normal gait Psych Appearance: grossly normal and well kempt Mental Status: mental status grossly normal Speech and movement: Normal speech and movement present Affect: normal affect Attitude: cooperative Coding Level of Care Code Est Pt Level 4 (53550) Diagnoses Chronic GERD K21.9 Gastric hyperacidity K31.89 Supravalvular stenosis of pulmonary trunk Q25.6 Anxiety and depression F41.9; F32.A Assessment & Plan Assessment & Plan (1) Chronic GERD: Code(s): K21.9 - Gastro-esophageal reflux disease without esophagitis Category: Medical Plan: Increased dose of omeprazole to 40 mg daily and added famotidine 40 mg at bedtime referred to GI clinic for further evaluation management (2) Gastric hyperacidity: Code(s): K31.89 - Other diseases of stomach and duodenum Category: Medical Plan: Increased dose of omeprazole to 40 mg daily and added famotidine 40 mg at bedtime referred to GI clinic for further evaluation management (3) Supravalvular stenosis of pulmonary trunk: Code(s): Q25.6 - Stenosis of pulmonary artery Category: Medical Plan: Referred oliver Cardiology, transitioning from pediatric Cardiology (4) Anxiety and depression: Code(s): F41.9 - Anxiety disorder, unspecified; F32.A - Depression, unspecified Category: Medical Plan: Referred to Reena CARSON our community mental health coordinator for referral to see a new therapist and psychiatrist Orders: Referrals Cardiology Referral Q25.6 - Stenosis of pulmonary artery Psychiatry Referral F41.9 - Anxiety disorder, unspecified, F32.A - Depression, unspecified Gastroenterology Referral K21.9 - Gastro-esophageal reflux disease without esophagitis, K31.89 - Other diseases of stomach and duodenum Medications: New omeprazole 40 mg PO DAILY 30 caps 2RF K31.89 - Other diseases of stomach and duodenum, K21.9 - Gastro-esophageal reflux disease without esophagitis famotidine 40 mg PO BEDTIME 30 tabs 1RF Discontinued omeprazole Discontinued Reason: Doctor's Order 20 mg PO DAILY 30 caps 1RF
--- OUTSIDE RECORDS SUMMARY | 2024-12-14 12:51 | XMS_ITS ---
Author Organization [facility] Address [address] [place] [address] Care Team Providers Care Bond Underwriter Name Role Phone Eileen LUNA, Margarita Chu Primary Care Provider Un available Esther Rivera Unavailable [phone] Allergies No Known Allergies REASON FOR VISIT [...] 08/16/2024 Encounters Encounter Location Date Provider Diagnosis [facility] [address] [place] [address] 08/16/2024 Esther Rivera Pain in right toe(s) [...] * CECELIASarah GLYNN LDOB:12/2004 (19 yo F)Acc No.[id number]:08/16/2024 Progress Notes Patient:?Sarah RAI Provider:?Esther Rivera DPM :2005???Age:19 Y???Sex:Female D ate:08/16/2024 Address:[address] [place], [place] [id number] Pcp:Nora Gibbs Subjective: * Chief Complaints: * [...] Foot, AP, LO, MO, RIGHT??Taken by trained?Podiatric Autism Specialist (EF).?Findings:? normal bone?density consistent for patients age [...] M79.674 (Primary)??? Plan: * Treatment: * Procedure Codes:?88161 X-RAY EXAM OF RIGHT FOOT 3V, Modifiers: [...] DPM Date:?0 08/16/2024 Generated for Printgage ng/Faxing/eTransmitting on:?12/14/2024 12:50 PM EDT History and Physical Notes * HPI [...] LO, MO, RIGHT Taken by trained Podiatric Autism Specialist (EF) Clinical Indication(s): Evaluate for Fra cture
--- OUTSIDE RECORDS SUMMARY | 2024-12-14 12:51 | XMS_ITS | Patient Health Record ---
Author Organization [facility] Address [address] [place] [address] Care Team Providers Care Territory Manager Name Role Phone Eileen LUNA, Margarita Chu Primary Care Provider Un available Esther Rivera Unavailable [phone] Allergies No Known Allergies Reason For Referral [...] 08/16/2024 Encounters Encounter Location Date Provider Diagnosis [facility] [address] [place] [address] 08/16/2024 Esthergloria Rivera Pain in right toe(s) [...] Start Date Coverage End Date [id number] [place] [address] [id number] Richard Wilkerson Natural Child - Insured has Financial Responsibility Medical (General) History Medical History History ICD Code Anxiety Depression Gall bladder problems Bipolar disorder Surgical History Surgery Date(Month/Year) uterus removed 04/13/24 Gall bladder 10/2023
--- NOTE | 2024-12-27 11:45 | AM.OFFVISNUR ---
Vital Signs 12/14/24 11:59 Height 4 ft 11 in Weight 218 lb BMI 44.0 BP 120/82 Blood Pressure Location Lt brachial Position Sitting Respiration 16 Pulse 56 Pulse Source Pulse Oximeter Temp 98.2 F Temp Source Oral Pulse Oximetry (%) 96 Oxygen Delivery Method Room Air Intake Visit Reasons: 3 months f/up Allergies sesame seed Allergy (Severe, Verified 12/14/24 12:22) Unknown wheat Allergy (Severe, Verified 12/14/24 12:22) Unknown cat dander Adverse Reaction (Verified 12/14/24 12:22) Itchy Eyes house dust mite Adverse Reaction (Verified 12/14/24 12:22) itchy eyes mold Adverse Reaction (Verified 12/14/24 12:22) ithcy eyes egg whites Allergy (Severe, Uncoded 12/14/24 12:22) Unknown peanuts Adverse Reaction (Uncoded 12/14/24 12:22) Anaphylaxis Medication List - Last Reconciled 12/14/24 by Margarita Arellano MD cetirizine (Zyrtec) 10 mg PO DAILY PRN diclofenac sodium 1% 4 grams topical QID PRN epinephrine (EpiPen 2-Hao) 0.3 mg (0.3 mL) IM Q15M PRN omeprazole 20 mg PO DAILY Assessment & Plan Assessment & Plan (1) Chronic GERD: Code(s): K21.9 - Gastro-esophageal reflux disease without esophagitis Category: Medical (2) Gastric hyperacidity: Code(s): K31.89 - Other diseases of stomach and duodenum Category: Medical (3) Supravalvular stenosis of pulmonary trunk: Code(s): Q25.6 - Stenosis of pulmonary artery Category: Medical (4) Anxiety and depression: Code(s): F41.9 - Anxiety disorder, unspecified; F32.A - Depression, unspecified Category: Medical Orders: Referrals Cardiology Referral Q25.6 - Stenosis of pulmonary artery Psychiatry Referral F41.9 - Anxiety disorder, unspecified, F32.A - Depression, unspecified Gastroenterology Referral K21.9 - Gastro-esophageal reflux disease without esophagitis, K31.89 - Other diseases of stomach and duodenum Medications: New omeprazole 40 mg PO DAILY 30 caps 2RF K31.89 - Other diseases of stomach and duodenum, K21.9 - Gastro-esophageal reflux disease without esophagitis famotidine 40 mg PO BEDTIME 30 tabs 1RF Discontinued omeprazole Discontinued Reason: Doctor's Order 20 mg PO DAILY 30 caps 1RF Coding Diagnoses Chronic GERD K21.9 Gastric hyperacidity K31.89 Supravalvular stenosis of pulmonary trunk Q25.6 Anxiety and depression F41.9; F32.A
== END 2024-12-14 13:35 | disposition home or self-care (01) ==
LOC: HO.HMCC 11:22
PROVIDERS: PCP Internal Medicine; Visit Provider Internal Medicine
DX: K21.9 Gastro-esophageal reflux disease without esophagitis (principal); K31.89 Other diseases of stomach and duodenum; Q25.6 Stenosis of pulmonary artery; F41.9 Anxiety disorder, unspecified; F32.A Depression, unspecified

== ENCOUNTER → 2024-12-14 11:21 | Outpatient (BNVA) | payer OTHER, SELFPAY | PROVIDERS: PCP Internal Medicine; Visit Provider Internal Medicine | DX: Z13.89 Encounter for screening for other disorder (principal) ==

== ENCOUNTER 2025-02-11 12:55 | Outpatient (REF) | payer OTHER, SELFPAY ==
--- OUTSIDE RECORDS SUMMARY | 2025-02-11 12:58 | XMS_ITS | Patient Health Record ---
Author Organization [facility] Address [address] [place] [address] Care Team Providers Care Remote Encoding Center Manager Name Role Phone Eileen LUNA, Margarita Chu Primary Care Provider Un available Esther Rivera Unavailable [phone] Allergies No Known Allergies Reason For Referral [...] 08/16/2024 Encounters Encounter Location Date Provider Diagnosis [facility] [address] [place] [address] 08/16/2024 Esthergloria Rivera Pain in right toe(s) [...] Start Date Coverage End Date [address]a [address] [place] [address] [id number] Richard Wilkerson Natural Child - Insured has Financial Responsibility Medical (General) History Medical History History ICD Code Anxiety Depression Gall bladder problems Bipolar disorder Surgical History Surgery Date(Month/Year) uterus removed 04/13/24 Gall bladder 10/2023
[2025-02-11 16:19] LABS: Hematocrit 38.7 % (37.0-47.0); Hemoglobin 12.3 g/dl (12.0-16.0)
[2025-02-11 16:45] LABS: Anion Gap 12 (12-20); Blood Urea Nitrogen 9 mg/dL (9-16); Calcium 9.2 mg/dL (8.4-10.2); Carbon Dioxide 27 mmol/L (22-29); Chloride 105 mmol/L (96-108); Estimated Glomerular Filt Rate > 60; Potassium 3.0 mmol/L (3.3-5.1); Sodium 141 mmol/L (135-145)
[2025-02-11 16:50] LABS: Hemoglobin A1C 120.3417 umol/L; Total Hemoglobin (HGBA1C) 3536.4128 umol/L
== END 2025-02-11 12:56 | disposition home or self-care (01) ==
LOC: HO.HMGCLDS 12:55
PROVIDERS: PCP Internal Medicine; Visit Provider Internal Medicine
DX: R11.0 Nausea (principal); R42 Dizziness and giddiness; Z13.1 Encounter for screening for diabetes mellitus
CPT/HCPCS: 36415; 80048; 82306; 83036; 84443; 85014; 85018

== ENCOUNTER 2025-03-10 09:51 | Outpatient (AMB) | payer OTHER, SELFPAY ==
--- OUTSIDE RECORDS SUMMARY | 2025-03-10 10:22 | XMS_ITS | Patient Health Record ---
Author Organization [facility] Address [address] [place] [address] Care Team Providers Care Continuous Mining Machine Lode Miner Name Role Phone Eileen LUNA, Margarita Chu Primary Care Provider Un available Esther Rivera Unavailable [phone] Allergies No Known Allergies Reason For Referral [...] 08/16/2024 Encounters Encounter Location Date Provider Diagnosis [facility] [address] [place] [address] 08/16/2024 Esthergloria Rivera Pain in right toe(s) [...] Start Date Coverage End Date [address] [place] [address] [id number] Richard Wilkerson Natural Child - Insured has Financial Responsibility Medical (General) History Medical History History ICD Code Anxiety Depression Gall bladder problems Bipolar disorder Surgical History Surgery Date(Month/Year) uterus removed 04/13/24 Gall bladder 10/2023
--- OUTSIDE RECORDS SUMMARY | 2025-03-10 10:22 | XMS_ITS | Encounter Summary ---
Author Organization [facility] Address [address] [place] [address] [place] [phone] Phone Care Team Providers Care Mechanical Technical Service Specialist Name Role Phone Margarita Arellano MD Primary Care Provider Encounter Details Date Type Department Care Team (Late st Contact Info) Description 04/13/2024 Procedure Pass OR Admitting Dept - Virtual Department [address] [place] [address] Social History Tobacco Use Types Packs/Day Years Used Date Smoking Tobacco: Never Smokeless Tobacco: Never Alcohol Use Standard Drinks/Week Comments Never 0 (1 standard drink = 0.6 oz pur e alcohol) Education Answer Date Recorded Are you interested in more education? Not on carrie e 01/01/2024 Are you concerned about learning? Not on file 01/01/2024 No 01/01/2024 No 01/01/2024 Digital Access Answer Date Recorded No 01/01/2024 No 01/01/2024 Reliable internet access at home? Not on file 01/01/2024 Device with a working camera? Not on file Intimate Partner Violence Answer Date R ecorded Are you denied basic needs s uch as food, clothing, or medical care? No 04/13/2024 In the past 12 months have y ou been in a relationship with a person who hurts, threatens, or tries to control you? No 04/13/2024 Are you denied basic needs s uch as food, clothing, or medical care? No 04/13/2024 In the past 12 months have y ou been in a relationship with a person who hurts, threatens, or tries to control you? No 04/13/2024 Comments No Sex and Gender Information Value Date Recorded Sex Assigned at Not on file Legal Sex Female 10:15 AM EDT Gender Identity Not on file Sexual Orientation Not on file documented as of this encounter Plan of Treatment Not on file documented as of this encounter Visit Diagnoses Not on filedocumented in this encounter Care Teams Mechanical Technical Service Specialist Relationship Specialty Start Date End Date Margarita Arellano MD [facility] [place] [address] PCP - General Internal Medicine 02/10/24 documented as of this encounter Additional Source Comments The information contained in this document represents components of the legal health record. It is not the complete legal health record.[facility]
--- NOTE | 2025-03-10 10:26 | MHC.OFFVIS ---
Vital Signs 03/10/25 10:29 Height 4 ft 11 in Weight 203 lb 8 oz BMI 41.1 BP 120/80 Blood Pressure Location Lt brachial Position Sitting Pulse 67 Pulse Source Pulse Oximeter Oxygen Delivery Method Room Air Intake Visit Reasons: Chondrocostal junction syndrome [Tietze] Intake Note: Pain today 03/13 Cardiac Monitor Technician Required: No Accompanied by: Self / Same As Patient Allergies sesame seed Allergy (Severe, Verified 03/10/25 10:28) Unknown wheat Allergy (Severe, Verified 03/10/25 10:28) Unknown dog dander Allergy (Mild, Verified 03/10/25 10:28) Unknown cat dander Adverse Reaction (Verified 03/10/25 10:28) Itchy Eyes house dust mite Adverse Reaction (Verified 03/10/25 10:28) itchy eyes mold Adverse Reaction (Verified 03/10/25 10:28) ithcy eyes egg whites Allergy (Severe, Uncoded 02/28/25 14:26) Unknown peanuts Adverse Reaction (Uncoded 02/28/25 14:26) Anaphylaxis HPI Comments Details: The patient is a 20-year-old female presenting with chest wall pain, 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 The pain began in 2020 without any known trauma or injury and is described as constant, burning, and characterized by pins and needles, aching, and stabbing sensations. The pain radiates from the right shoulder under the right breast to the right ribcage, affecting daily activities and sleep, and is exacerbated by weather changes and movements. She also reports tenderness and pain in third costochondral margin without significant swelling. Denies any recent cough, infection, rash, cold, weight loss, chest trauma, swelling or history of cancer, or rheumatologic disease. The patient has not undergone any physical therapy or injections for this condition. A shoulder X-ray conducted in September 2024 was normal, and there is a history of chronic GERD, s/p lap cholecystectomy 10/2023, right upper quadrant pain, gastric hyperacidity, sleep apnea syndrome, multiple food allergies, morbid obesity, pulmonary valve stenosis, anxiety, bipolar disorder and depression. Patient reports that the pain increases with eating, particularly any type of food, leading to nausea and vomiting. She has not seen a Websphere Administrator recently, and her last visit was a few years ago for a heart murmur. She has pending Cardiology referral. Patient was referred to us by Dr. Bazzi, GI provider for potential intercostal nerve blocks. The patient works at [employer], which involves standing, lifting, bending and she reports that leaning over increases her pain. She has not been following any specific diet or exercise regimen due to the pain, and she denies the use of alcohol, smoking, or marijuana use. - Onset: Began in 2020 without known trauma or injury. - Quality: Constant, burning, pins and needles, aching, stabbing, tagging, pulling, sore, and sickening. - Location: Right shoulder, under right breast, right flank and right sternum - Radiation: Radiates to the right side and middle back. - Exacerbating factors: Weather changes, movements, eating, coughing, sneezing - Relieving factors: None, pain is constant 10/10 - Interference: Affects daily activities and sleep. - Affect: Pain impacts daily activities and sleep, causing fatigue and nausea. - Analgesia: Current pain level is 10/10, no effective pain medications reported. - Adverse Effects: Nausea and vomiting associated with eating. - Activities of Daily Living: Pain affects work and daily functioning. - Aberrant Drug Related Behaviors: None reported. FOR[facility]LY [facility] Medical History Supravalvular stenosis of pulmonary trunk Chronic GERD Gastric hyperacidity Allergy to egg white Allergy to nuts Right shoulder pain History of cholelithiasis GERD (gastroesophageal reflux disease) Low HDL (under 40) Anxiety and depression Morbid obesity Asymmetrical breasts Pulmonary valve stenosis Surgical History History of hysterectomy History of laparoscopic cholecystectomy (10/10/23) Right upper quadrant abdominal pain History of esophagogastroduodenoscopy (EGD) H/O colonoscopy Family History Maternal Aunt No problems noted. Maternal Uncle Mental health disorder Mother Bronchial asthma Essential hypertension Morbid obesity Anxiety and depression Social History Housing: House Patient Tobacco Use Status: Never used Tobacco e-Cigarette/Vaping Use: Never Used service: No Current occupational status: unemployed Cognitive needs: No Hearing needs: No Vision needs: Yes Review of Systems Const Details: - Musculoskeletal: Reports constant, burning pain in the right shoulder, under the right breast, and right flank. - Gastrointestinal: Reports nausea and vomiting associated with eating. - Respiratory: Denies any respiratory symptoms. - Cardiovascular: Denies chest pain, tightness, or dyspnea. Reports occasional chest pain on the right side. - Neurological: Denies numbness or tingling, reports sharp pain in the shoulder. - Psychological: Reports anxiety, Bipolar disorder and depression, not currently under psychiatric care. All systems reviewed & are unremarkable except as noted in HPI and below Physical Exam Vital Signs: Last Vital Signs Pulse 67 03/10/25 10:29 BP 120/80 03/10/25 10:29 Oxygen Delivery Method Room Air 03/10/25 10:29 BMI result Body Mass Index 41.1 General: Appears afebrile. Alert and oriented. Mood and affect appropriate. Follows and participates in conversation appropriately. Respiratory effort is unlabored. No cough. Able to transition from sit to stand unassisted. Ambulates with bilaterally normal heel strike and toe off. Chest Chest palpation & inspection: normal inspection of the chest, localized rib tenderness with anteroposterior compression right mid-clavicular line and tenderness (right) rib, sternum, costochondral junction right 9th rib and 10th rib and sternoclavicular joint on the right Resp Effort & Inspection: normal respiratory effort, able to speak in complete sentences, no audible wheezes, no cough, not labored, no respiratory distress and symmetric chest movement Cardio Jugular venous distension: no JVD Rate: regular rate Peripheral pulses: Peripheral pulses 2+ throughout GI Inspection: Yes normal to inspection, No abdominal wall ecchymosis and Yes scar Palpation (GI): Soft to palpation, not firm, Tenderness to palpation present (GI) in the RUQ and no guarding Back/Spine/Pelvis Cervical Spine: cervical ROM normal and No Cervical spine tenderness Thoracic/Lumbar Spine: thoracic and lumbar spine normal to inspection, No Thoracic/lumbar spine scar(s), pain with thoraco-lumbar ROM, paraspinal muscle tenderness on the right in the mid thoracic and in the lower thoracic, thoraco-lumbar ROM limited, No thoracic spinal tenderness and No lumbar spinal tenderness Results Reviewed Results Reviewed: XR SHOULDER, RIGHT 09/15/24 CLINICAL INFORMATION: M25.511 - Pain in right shoulder COMPARISON: None available. TECHNIQUE: Three views of the right shoulder. FINDINGS: Normal bone mineralization. No fracture, dislocation, or suspicious bone lesion. Normal alignment. The glenohumeral joint is normal. The AC joint is normal. There is a neutral lateral acromion. No undersurface spurring. The subacromial space is preserved. Remainder of the soft tissue and bony structures appear normal. IMPRESSION: Normal right shoulder. FL upper GI w air w Ba Swallow 11/24/24 IMPRESSION: Moderate secretions in stomach suggestive of hyper acidity. Mild gastroesophageal reflux. Assessment & Plan Assessment & Plan (1) Chest wall pain: Code(s): R07.89 - Other chest pain Category: Medical (2) Rib pain on right side: Code(s): R07.81 - Pleurodynia Category: Medical (3) Costochondritis: Code(s): M94.0 - Chondrocostal junction syndrome [Tietze] Category: Medical (4) Thoracic radiculitis: Code(s): M54.14 - Radiculopathy, thoracic region Category: Medical (5) Anxiety and depression: Code(s): F41.9 - Anxiety disorder, unspecified; F32.A - Depression, unspecified Category: Medical (6) Slipping rib syndrome: Code(s): M94.0 - Chondrocostal junction syndrome [Tietze] Category: Medical Plan The plan includes obtaining X-rays of the ribs and thoracic spine to further evaluate the chest wall pain. If the X-rays are normal, a thoracic MRI will be considered to assess for any underlying issues. Discussed interventional treatments, including diagnostic vs therapeutic injections, including intercostal nerve blocks and thoracic medial branch blocks and epidural steroid injections. Physical therapy is recommended to help manage the pain and improve function, with a referral to a location close to the patient's home. The patient will trial to take omeprazole for GERD, specifically taken on an empty stomach and waiting 30-60 minutes before eating to improve efficacy. She reports always taking this medication with food previously without significant relief. A referral to a Psychologist is provided to address anxiety and depression, with a preference for a female provider. The patient is advised to avoid medications that may exacerbate her stomach issues and to try plain Tylenol as needed for pain management. All questions and concerns have been answered and patient agreed with the plan. Follow up for xray results and sooner as needed. Patient was informed and verbally consented to the use of an ambient scribe for clinic note documentation during this visit. Orders: Orders XR ribs RT min 3V w CXR1V Today M94.0 - Chondrocostal junction syndrome [Tietze], R07.81 - Pleurodynia, R07.89 - Other chest pain XR thoracic spine 3V Today M54.14 - Radiculopathy, thoracic region PT Evaluation and Treatment Today M54.14 - Radiculopathy, thoracic region, M94.0 - Chondrocostal junction syndrome [Tietze], R07.81 - Pleurodynia, R07.89 - Other chest pain Referrals Psychology Referral F32.A - Depression, unspecified, F41.9 - Anxiety disorder, unspecified Coding Level of Care Code New Pt Level 4 (16529) Diagnoses Chest wall pain R07.89 Rib pain on right side R07.81 Costochondritis M94.0 Thoracic radiculitis M54.14 Anxiety and depression F41.9; F32.A Slipping rib syndrome M94.0
[2025-03-10 10:29] VITALS: BP 120/80; PULSE 67; BMI 41.1
== END 2025-03-10 11:06 | disposition home or self-care (01) ==
LOC: HO.PMC 09:52
PROVIDERS: PCP Internal Medicine; Visit Provider Nurse Practitioner Family
DX: R07.89 Other chest pain (principal); R07.81 Pleurodynia; M94.0 Chondrocostal junction syndrome [Tietze]; M54.14 Radiculopathy, thoracic region; F41.9 Anxiety disorder, unspecified; F32.A Depression, unspecified
CPT/HCPCS: 99204

== ENCOUNTER 2025-03-10 09:51 | Outpatient (REF) | payer OTHER, SELFPAY ==
--- NOTE | ~2025-03-10 | XR_ITS ---
EXAMINATION: XR THORACIC SPINE CLINICAL INFORMATION: M54.14 - Radiculopathy, thoracic region COMPARISON: None available. TECHNIQUE: 3 views of the thoracic spine were obtained. FINDINGS: There is no fracture or bone destruction seen and the vertebral alignment is normal. No scoliosis. Normal kyphosis. Disc spaces are normal. Facets are normally aligned. There is no abnormality of the paraspinal soft tissues. XR/XR thoracic spine 3V IMPRESSION: Normal radiographs of the thoracic spine. Electronically signed by: Caleb Suárez MD 03/10/2025 11:56 AM EDT
--- NOTE | ~2025-03-10 | XR_ITS ---
EXAMINATION: XR RIBS, RIGHT CLINICAL INFORMATION: R07.89 - Other chest pain COMPARISON: None available. TECHNIQUE: PA view of the chest, and 3 views right RIBS obtained. FINDINGS: Lungs are clear. No consolidation, pneumothorax, or pleural effusion. The cardiomediastinal silhouette and pulmonary vasculature are normal. Osseous structures are unremarkable. Ribs are intact. No fractures are identified. There are cholecystectomy clips present. XR/XR ribs RT min 3V w CXR1V IMPRESSION: No acute findings of the chest or right ribs. Electronically signed by: Caleb Suárez MD 03/10/2025 11:55 AM EDT
== END 2025-03-10 09:52 | disposition home or self-care (01) ==
LOC: HO.XRAY 09:51
PROVIDERS: PCP Internal Medicine; Visit Provider Nurse Practitioner Family
DX: M94.0 Chondrocostal junction syndrome [Tietze] (principal); R07.89 Other chest pain; R07.81 Pleurodynia; K21.9 Gastro-esophageal reflux disease without esophagitis; M54.14 Radiculopathy, thoracic region; F32.A Depression, unspecified; F41.9 Anxiety disorder, unspecified
CPT/HCPCS: 71101; 72072

== ENCOUNTER → 2025-03-10 11:07 | Outpatient (BNV) | payer OTHER, SELFPAY | PROVIDERS: PCP Internal Medicine; Visit Provider Radiology Diagnostic Radiology | DX: R07.89 Other chest pain (principal); M54.14 Radiculopathy, thoracic region | CPT/HCPCS: 71101; 72072 ==

== ENCOUNTER → 2025-04-25 08:57 | Outpatient (REF) | payer OTHER, SELFPAY ==
--- NOTE | 2025-04-25 09:00 | CA_ITS ---
Transthoracic Echocardiogram Amended Patient (Last, First, Middle): Sarah Wilkerson, Gender: F Date of : 2005 Age: 20 Procedure Date: 04/25/2025 Procedure Type: Transthoracic Echocardiogram Location: OP Height: 149.86 cm Weight: 92.08 kg BSA: 1.86 m2 Heart Rate: bpm BP: 120 / 80 mmHg Forming Yardage Control Operator: SLOAN Referring MD: Margarita Arellano MD Symptoms: I37.0 - Nonrheumatic pulmonary valve stenosis Study Quality: Adequate ECG Rhythm: Sinus Conclusions: - The left ventricular systolic function is normal. The calculated ejection fraction is 61% by biplane method. - There is mild pulmonic valve stenosis. Peak gradient is calculated at 17 mmHg. Findings Left Ventricle Normal left ventricular cavity size. There is normal left ventricular wall thickness. The left ventricular systolic function is normal. The calculated ejection fraction is 61% by biplane method. There is no evidence of regional wall motion abnormalities. Diastolic function is normal for age. Right Ventricle Mildly increased right ventricular cavity size. There is normal right ventricular systolic function. Atria Both atria are normal in size. Aortic Valve There is a normal trileaflet aortic valve. There is no aortic valve stenosis. There is no aortic valve regurgitation. Mitral Valve The mitral valve appears normal. There is no mitral valve regurgitation. There is no mitral valve stenosis. Pulmonic Valve There is no pulmonic valve regurgitation. There is mild stenosis. Peak PV gradient is calculated at 17 mmHg. Tricuspid Valve There is trace tricuspid valve regurgitation. There is no evidence of pulmonary hypertension. Great Vessels The asc aorta and aortic arch are normal in size. Venous The inferior vena cava is normal in size and collapses greater than 50% with inspiration. Pericardium/Pleural There is no evidence of pericardial effusion. Prior Study Comparison No prior study available for comparison. Measurements 2D Linear Measurements IVSd: 0.74 0.6-0.9/0.6-1.0 cm LVIDd: 4.42 3.9-5.3/4.2-5.9 cm LVIDd Index: 2.38 2.4-3.2/2.2-3.1 cm/m2 LVIDs: 2.94 2.0-3.6 cm LVPWd: 0.89 0.7-1.1 cm LA Diam: 3.10 2.7-3.8/3.0-4.0 cm LAIDs Index: 1.67 1.5-2.3 cm/m2 LV Mass: 140.50 67-162/88-224 g LV Mass Index: 75.54 43-95/49-115 g/m2 LVOT Diam: 1.90 3.0+(-)1.3 cm 2D Volumes LA Vol: 23.10 2D Systolic Function EF 4C: 62.80 >55% EF 2C: 57.80 >55% EF BiP: 60.50 >55% Mitral Valve MV Pk E: 1.11 MV PK A: 0.67 MV Decel Time: 194.00 E/A: 1.70 E'Lateral: 16.40 E'Medial: 13.10 E/E' Med: 8.50 E/E' Lat: 6.80 PHT: 57.00 MVA PHT: 3.86 Decel Cass: 5.71 Aortic Valve AoV Pk Reji: 1.52 AoV Mn Reji: 1.05 AoV VTI: 0.35 AoV Pk Grad: 9.00 Aov Mn Grad: 5.00 FLEX Cont.VTI: 2.09 LVOT LVOT Pk Reji: 1.29 LVOT Mn Reji: 0.81 LVOT VTI: 0.26 LVOT Pk Grad: 7.00 LVOT Mn Grad: 3.00 LVOT Diam: 1.90 LVOT Area: 2.84 Diastolic Function MV Pk E: 1.11 MV Pk A: 0.67 E/A: 1.70 E'Medial: 13.10 E/E' Med: 8.50 E' Laterial: 16.40 E/E' Lat: 6.80 Right Ventricle TAPSE (mm): 23.20 TVS' Reji: 10.60 Tricuspid Valve TR Pk Reji: 2.17 TR Pk Grad: 19.00 RA Press: 3.00 RVSP: 22.00 Great Vessels Aorta Sinus of Valsalva: 2.53 2.0-3.5 cm Ao Asc: 2.60 2.1-3.4 cm Ao Arch: 2.10 Pulmonary Veins Pulm Vein S/D 1.00 Pulmonary Valve PV Pk Reji: 2.05 PV Min Reji: 1.48 Peak PV Grad: 17.00 PV Mn Grad: 10.00 Shunting QP:QS: 1.30 Updated in Other Vendor System with Status of Final Derrick Garvin MD electronically signed on 04/25/2025 11:54:53 AM with status of Final
== END ==
LOC: HO.CARD 08:57
PROVIDERS: PCP Internal Medicine; Visit Provider Internal Medicine
DX: I37.0 Nonrheumatic pulmonary valve stenosis (principal); Q25.6 Stenosis of pulmonary artery
CPT/HCPCS: 93306; Q9957

== ENCOUNTER → 2025-04-25 09:00 | Outpatient (BNV) | payer OTHER, SELFPAY | PROVIDERS: PCP Internal Medicine; Visit Provider Internal Medicine | DX: I37.0 Nonrheumatic pulmonary valve stenosis (principal) | CPT/HCPCS: 93306 ==

== ENCOUNTER 2025-06-09 14:53 | Outpatient (AMB) | payer OTHER, SELFPAY ==
[2025-06-09 15:08] VITALS: BP 122/74; PULSE 78; BMI 40.5
--- NOTE | 2025-06-09 15:08 | A.OFFVIS_ITS ---
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: No Accompanied by: Mother Allergies sesame seed Allergy (Severe, Verified 06/09/25 15:11) Unknown wheat Allergy (Severe, Verified 06/09/25 15:11) Unknown dog dander Allergy (Mild, Verified 06/09/25 15:11) Unknown cat dander Adverse Reaction (Verified 06/09/25 15:11) Itchy Eyes house dust mite Adverse Reaction (Verified 06/09/25 15:11) itchy eyes mold Adverse Reaction (Verified 06/09/25 15:11) ithcy eyes egg whites Allergy (Severe, Uncoded 02/28/25 14:26) Unknown peanuts Adverse Reaction (Uncoded 02/28/25 14:26) Anaphylaxis Medication List - Last Reconciled 06/09/25 by TERESA Khan cetirizine (Zyrtec) 10 mg PO DAILY PRN HPI HPI Follow up Testing: Details: Sarah is a 20-year-old female with past medical history of obesity, GERD, pulmonic stenosis who presents for cardiology consultation in our office ([facility] pt). She had been followed by a pediatric occupational therapist is now transitioning to adult Cardiology. Today she reports that she had a murmur as a young child and was found to have pulmonic stenosis. It has been followed with periodic echoes and has had no significant changes over the years. She has no symptoms from this. She does get heart palpitations, pounding heart which cause her concern. No lightheadedness, presyncope, syncope, falls. She will get random chest pains without pattern. No shortness of breath, PND, orthopnea or edema. Does not take meds at home. No alcohol use and nonsmoker. Does not do any routine exercise. Currently works at [employer]. Plans to do a [employer] program in the spring. No known family history of heart disease. No other cardiac diagnoses. FORMERLY [facility], [facility] Medical History Supravalvular stenosis of pulmonary trunk Chronic GERD Gastric hyperacidity Allergy to egg white Allergy to nuts Right shoulder pain History of cholelithiasis GERD (gastroesophageal reflux disease) Low HDL (under 40) Anxiety and depression Morbid obesity Asymmetrical breasts Pulmonary valve stenosis Surgical History History of hysterectomy History of laparoscopic cholecystectomy (10/10/23) Right upper quadrant abdominal pain History of esophagogastroduodenoscopy (EGD) H/O colonoscopy Family History Maternal Aunt No problems noted. Maternal Uncle Mental health disorder Mother Bronchial asthma Essential hypertension Morbid obesity Anxiety and depression Social History Housing: House Patient Tobacco Use Status: Never used Tobacco e-Cigarette/Vaping Use: Never Used service: No Current occupational status: unemployed Cognitive needs: No Hearing needs: No Vision needs: Yes Review of Systems Const All systems reviewed & are unremarkable except as noted in HPI and below Denies daytime sleepiness, Denies difficulty sleeping, Denies snoring, Denies stops breathing during sleep and Denies weakness Card Reports chest pain (random), Reports rapid heart rate, Denies irregular heart rhythm, Denies claudication, Denies leg edema, Denies lightheadedness, Reports palpitations, Denies dyspnea, Denies dyspnea on exertion, Denies orthopnea, Denies paroxysmal nocturnal dyspnea and Denies slow heart rate Resp Denies cough, Denies dyspnea, Denies dyspnea on exertion and Denies snoring GI Reports no additional complaints, Denies hematochezia, Denies change in stool character and Denies dyspepsia Musc Denies abnormal gait, Denies muscle weakness and Denies numbness Neuro Denies abnormal gait, Denies numbness and Denies weakness Endo Reports palpitations Physical Exam Vital Signs: Last Vital Signs Pulse 78 06/09/25 15:08 BP 122/74 06/09/25 15:08 BMI result Body Mass Index 40.5 Const General: cooperative, healthy appearing, comfortable and no acute distress Orientation/consciousness: patient oriented x3 Neck Neck: Yes normal visual inspection Resp Effort & Inspection: normal respiratory effort Auscultation: clear to auscultation bilaterally, no rales, no rhonchi and no wheezes Cardio Rate: regular rate Rhythm: regular rhythm Heart sounds: S1 normal heart sound present, S2 normal heart sound present, no gallops, Murmur heart sound present (faint systolic) and no rubs Neuro General: patient oriented x3 Extrem General: Yes normal to inspection, No no pedal edema and No calf tenderness Psych Appearance: grossly normal Mental Status: mental status grossly normal Speech and movement: Normal speech and movement present Office Procedures EKG Details: Today, read by me, sinus rhythm with sinus arrythmi, right axis, rate 78, Qtc 414ms [id number], Complete Assessment & Plan Assessment & Plan (1) Pulmonary valve stenosis: Comment: Mild, followed by Cardiology, repeat echocardiogram again in 5 years, no need to limit activities, no need for SBE prophylaxis Code(s): I37.0 - Nonrheumatic pulmonary valve stenosis Category: Medical Plan: History of pulmonic stenosis, previously followed by pediatric occupational therapist and now transitioning to our office. Echocardiogram done 04/25/2025 shows EF 61%, mild pulmonic stenosis, peak gradient 17 mmHg. Cardiology note 01/02/2023 in our system states that she has some valvular pulmonic stenosis with negative genetic testing for Prosser syndrome, peak gradient 18 mm of Hg. There are no indicates the pulmonic valve itself appears morphologically normal without significant regurgitation or stenosis, no sign of left ventricular hypertrophy. - overall I believe there is no significant change to her condition. Will continue to follow periodically with echocardiograms. (2) Supravalvular stenosis of pulmonary trunk: Code(s): Q25.6 - Stenosis of pulmonary artery Category: Medical Plan: As above (3) Palpitations: Code(s): R00.2 - Palpitations Category: Medical Plan: Reports of heart palpitations, rapid heartbeats causing concern. Will check a Holter monitor to assess for arrhythmia. Discuss the reduction in caffeinated beverages, maintain good hydration. Follow-up with yarn examiner next visit to establish provider care. Plan I discussed with the patient the findings of the echocardiogram, which showed mild pulmonary stenosis, and explained the importance of periodic monitoring. We talked about the heart monitor to assess palpitations and the potential impact of anxiety on her symptoms. I advised her to continue managing her bipolar diso rder and GERD. Patient Instructions: - Follow up with periodic echocardiograms as scheduled. - Wear the heart monitor as instructed and report any symptoms. - Continue managing anxiety and bipolar disorder. - Manage GERD symptoms with lifestyle modifications. Patient was informed and verbally consented to the use of an ambient scribe for clinic note documentation during this visit. Visit time spent on chart review, interview, assessment, orders, documentation. Coding Level of Care Code New Pt Level 4 (52887) Complex EM visit Add On G2211 Diagnoses Pulmonary valve stenosis I37.0 Supravalvular stenosis of pulmonary trunk Q25.6 Palpitations R00.2 CPT Codes EKG - CPT: 04422-[id number], Complete ([id number]) Time Spent (min) 30
--- OUTSIDE RECORDS SUMMARY | 2025-06-09 18:01 | XMS_ITS | Clinical Summary ---
Author Organization [facility] Address [address] [place] [id number] Phone Care Team Providers Care Coin Rolling Machine Operator Name Role Phone Margarita Arellano MD Primary Care Provider Allergies No known active allergies Medications hydrOXYzine (VISTARIL) 25 MG capsule 04/15/2024 Active venlafaxine (EFFEXOR-XR) 150 MG 24 hr capsule 150 mg. 04/23/2024 Ac tive Active Problems Problem Noted Date Diagnosed Date Post-operative state 04/27/2024 Assessment & Plan (04/27/2024 1:30 PM EDT): 2 weeks status post TLH, doing quite well. No need for further follow-up unless she is having any symptoms or problems. Encouraged routine pelvic exams at least every few years, though she does not need Pap smears anymore Intra-abdominal adhesions 04/13/2024 Class 3 severe obesity with body mass index (BMI) of 50.0 to 59.9 in adult 02/12/2024 Resolved Problems Problem Noted Date Diagnosed Date Resolved Date Abnormal uterine bleeding 02/12/2024 Overview (02/12/2024): Menses irregular since menarche age 8 No signs hirsutism clinically Daily bleeding for a year Risk factors for EIN, PCOS Assessment & Plan (04/06/2024 1:31 PM EDT): Certain of decision for hysterectomy and that she has never wanted to bear children or raise children, surgical consent signed today, recommend checking blood test now and again on the day of the surgery, we will sign transfusion consent in the preop area, the risk of transfusion is quite low Reviewed risk of infection bleeding pain injury to internal organs, stressed the importance of early ambulation after surgery to avoid DVT, pneumonia, etc. Assessment & Plan (03/17/2024 12:43 PM EDT): requests definitive resolution of any bleeding, and hopefully of any associated cramping pain, with hysterectomy. Again encouraged her to consider the option of a Mirena IUD, placed under sedation with hysteroscopy D&C as she has risk factors for endometrial hyperplasia. That option is declined, I put in the request for hysterectomy after discussion of the significant risks she has for complications. Also put in a message to have a preoperative visit about 2 weeks before the surgery to sign consent forms, review concerns etc. Assessment & Plan (02/12/2024 10:37 AM EDT): Discussed overall ago ovulation, in her case may be related to PCOS there are no signs of excess androgens. Uncertain if lab work would be done, recommend comprehensive testing today and let her know this does not need to be repeated unless something changes clinically Request records from Dr. Alfaro regarding the previous ultrasound, any office notes, lab results etc. It would be difficult to obtain a transvaginal ultrasound she is hesitant about that, transabdominal would not likely yield any useful information regarding thickness of the lining of the uterus. Recommend try to control with the progestin, would start with low-dose oral contraceptive dosing, explained it may not be adequate to control the bleeding better and rather increase dose slowly as tolerated till we achieve desired results. D&C may be warranted if bleeding does not respond to progestin therapy. Explained it is important to get some progestin to the uterus to prevent development of hyperplasia. Another method might be a levonorgestrel IUD, which can be inserted under anesthesia at the time of a D&C Encouraged daily brisk walking and healthy eating, which can, if accompanied by weight loss, resulted improved ovulation as well as general overall improved health Family History Relation Status Comments Brother 1 Alive Brother 2 Alive Father Alive Mother Alive Sister Alive Social History Tobacco Use Types Packs/Day Years Used Date Smoking Tobacco: Never Smokeless Tobacco: Never Tobacco Cessation:Counseling Given: Not Answered Alcohol Use Standard Drinks/Week Comments Never 0 [...] on file Sexual Orientation Not on file Last Filed Vital Signs Vital Sign Reading Time Taken Comments Blood Pressure 118/74 04/27/2024 11:08 AM EDT Pulse 102 04/13/2024 10:45 AM EDT Temperature 36.4 C (97.5 F) 04/13/2024 1:43 PM EDT Respiratory Rate 19 04/13/2024 10:45 AM EDT Oxygen Saturation 97% 04/13/2024 1:43 PM EDT Inhaled Oxygen Concentration - - Weight 113.4 kg (250 lb) 04/27/2024 11:08 AM EDT Height 149.9 cm (4' 11 ) 04/27/2024 11:08 AM EDT Body Mass Index 50.49 04/27/2024 11:08 AM EDT Plan of Treatment Health Maintenance Due Date Last Done Comments Adult Td,Tdap Booster 2003 DEPRESSION SCREENING 2015 HEPATITIS A VACCINES (2 of 2 - 2-dose series) 08/13/2015 02/10/2015 HPV VACCINES (2 - 2-dose series) 08/13/2015 02/10/2015 SMOKING Hx and SMOKELESS TOBACCO SCREENING 2016 MENINGOCOCCAL VACCINES (B) (1 of 2 - Standard) 2019 HEPATITIS C SCREENING 2021 HIV ONE-TIME SCREENING (18-65 YEARS) 2021 PAP SMEAR 2024 INFLUENZA VACCINE (#1) 2025 , 06/01/2022, 08/01/2021, Additional history exists COVID-19 VACCINE ( season) 2025 08/11/2022, 08/03/2021, 12/31/2020, Additional history exists HIB VACCINES Aged Out No longer eligi ble based on patient's age to complete this topic MENINGOCOCCAL VACCINES (ACWY) Aged Out No longer eligible based on patient's age to complete this topic PNEUMOCOCCAL VACCINES (0-49 years) Aged Out No longer eligible based on patient's age to complete this topic Medical Devices Not on file Insurance CIGNA PPO CIGNA PPO CIGNA PPO CIGNA PPO CIGNA PPO CIGNA PPO Advance Directives For more information, please contact: [phone] (9AM - 5PM [facility], Friday-Friday) * Full Code (Latest Code Status on File) Date Activated Date Inactivated Comments 04/13/2024 6:07 AM Question Answer Comments Code Status Confirmed With: Patient Care Teams Coin Rolling Machine Operator Relationship Specialty Start Date End Date Margarita Arellano MD 1963 [facility] [place] [address] PCP - General Internal Medicine 02/10/24 Additional Source Comments The information contained in this document represents components of the legal health record. It is not the complete legal health record.[facility]
--- OUTSIDE RECORDS SUMMARY | 2025-06-09 18:01 | XMS_ITS | Encounter Summary ---
Author Organization [facility] Address [address] [place] [address] [place] [address] Phone Care Team Providers Care Flush Tester Name Role Phone Margarita Arellano MD Primary Care Provider Encounter Details Date Type Department Care Team (Late st Contact Info) Description 04/13/2024 Procedure Pass OR Admitting Dept - Virtual Department [address] [place] [address] Social History Tobacco Use Types Packs/Day Years [...] on filedocumented in this encounter Care Teams Flush Tester Relationship Specialty Start Date End Date Margarita Arellano MD [facility] [place] [address] PCP - General Internal Medicine 02/10/24 documented as of this encounter Additional Source Comments The information contained in this document represents components of the legal health record. It is not the complete legal health record.[facility]
--- OUTSIDE RECORDS SUMMARY | 2025-06-09 18:02 | XMS_ITS | Patient Health Record ---
Author Organization [facility] Address [address] [place] [address] Care Team Providers Care Collection Systems Consultant Name Role Phone Eileen LUNA, Margarita Chu Primary Care Provider Un available Esther Rivera Unavailable [phone] Allergies No Known Allergies Reason For Referral [...] Provider Diagnosis [facility] [address] [place] [address] 08/16/2024 Esthergloria Rivera Pain in right toe(s) [...] Start Date Coverage End Date [id number] [place] [phone] [id number] Richard Wilkerson Natural Child - Insured has Financial Responsibility Medical (General) History Medical History History ICD Code Anxiety Depression Gall bladder problems Bipolar disorder Surgical History Surgery Date(Month/Year) uterus removed 04/13/24 Gall bladder 10/2023
== END 2025-06-09 16:01 | disposition home or self-care (01) ==
PROVIDERS: PCP Internal Medicine; Visit Provider Nurse Practitioner Family
DX: I37.0 Nonrheumatic pulmonary valve stenosis (principal); Q25.6 Stenosis of pulmonary artery; R00.2 Palpitations
CPT/HCPCS: 93010; 99204

== ENCOUNTER → 2025-06-09 14:53 | Outpatient (BNVA) | payer OTHER, SELFPAY | PROVIDERS: PCP Internal Medicine; Visit Provider Nurse Practitioner Family | DX: R00.2 Palpitations (principal) | CPT/HCPCS: 93005 ==

== ENCOUNTER → 2025-06-21 09:31 | Outpatient (REF) | payer OTHER, MEDICAID, SELFPAY ==
--- NOTE | 2025-06-21 09:36 | HM_ITS ---
* Total monitoring time 2 days and 14 hours. * Underlying rhythm is sinus with an average rate of 82/Min. * Rare ventricular ectopy. * No significant pauses or high-grade AV blocks. * Chest discomfort in patient diary correlates with possible supraventricular ectopy versus sinus arrhythmia but there is also lot of artifact in the strip. Headache and patent right breast correlates with sinus rhythm. MTDD
== END ==
LOC: HO.CARD 09:31
PROVIDERS: PCP Internal Medicine; Visit Provider Nurse Practitioner Family
DX: R00.2 Palpitations (principal)
CPT/HCPCS: 93242

== ENCOUNTER → 2025-06-21 09:36 | Outpatient (BNV) | payer OTHER, MEDICAID, SELFPAY | PROVIDERS: PCP Internal Medicine; Visit Provider Internal Medicine | DX: I49.3 Ventricular premature depolarization (principal) | CPT/HCPCS: 93244 ==

== ENCOUNTER 2025-07-19 14:26 | Outpatient (AMB) | payer MEDICAID, SELFPAY ==
[2025-07-19 14:32] VITALS: BP 108/68; PULSE 58; BMI 39.2
--- NOTE | 2025-07-19 14:32 | MHC.OFFVIS ---
Vital Signs 07/19/25 14:32 Height 4 ft 11 in Weight 194 lb 0.108 oz BMI 39.2 BP 108/68 Blood Pressure Location Lt brachial Position Sitting Pulse 58 Pulse Source Pulse Oximeter Intake Visit Reasons: 3 wk f/u after holter Allergies sesame seed Allergy (Severe, Verified 06/09/25 15:11) Unknown wheat Allergy (Severe, Verified 06/09/25 15:11) Unknown dog dander Allergy (Mild, Verified 06/09/25 15:11) Unknown cat dander Adverse Reaction (Verified 06/09/25 15:11) Itchy Eyes house dust mite Adverse Reaction (Verified 06/09/25 15:11) itchy eyes mold Adverse Reaction (Verified 06/09/25 15:11) ithcy eyes egg whites Allergy (Severe, Uncoded 02/28/25 14:26) Unknown peanuts Adverse Reaction (Uncoded 02/28/25 14:26) Anaphylaxis Medication List - Last Reconciled 07/19/25 by TERESA Khan cetirizine (Zyrtec) 10 mg PO DAILY PRN HPI HPI 3 wk f/u after holter: Details: Sarah is a 20-year-old female with past medical history of obesity, GERD, mild supravalvar pulmonary stenosis, previously followed by soldering machine setter and transitioned over to adult Cardiology last visit. She had reported heart palpitations and recently underwent a Holter monitor showing sinus rhythm, sinus tach and rare ventricular ectopy. Today she reports that she still has episodes where she feels her heart is beating fast. This causes her much concern and she gets anxious. She notices it randomly and when she is very anxious or upset. She is under a lot of stress as she is moving to [place] next month for [employer]. She will be residing with her boyfriend and they are doing the [employer] program together. The program will then place them in jobs. She is not sure where she will be living going forward. She will be back in this area in April and can have a follow-up visit here at that time. No lightheadedness, presyncope, syncope, falls. She will get random chest pains without pattern. No shortness of breath, PND, orthopnea or edema. Does not take meds at home. No alcohol use and nonsmoker. Does not do any routine exercise. Currently works at [employer]. Mother is present. [facility] Medical History Supravalvular stenosis of pulmonary trunk Chronic GERD Gastric hyperacidity Allergy to egg white Allergy to nuts Right shoulder pain History of cholelithiasis GERD (gastroesophageal reflux disease) Low HDL (under 40) Anxiety and depression Morbid obesity Asymmetrical breasts Pulmonary valve stenosis Surgical History History of hysterectomy History of laparoscopic cholecystectomy (10/10/23) Right upper quadrant abdominal pain History of esophagogastroduodenoscopy (EGD) H/O colonoscopy Family History Maternal Aunt No problems noted. Maternal Uncle Mental health disorder Mother Bronchial asthma Essential hypertension Morbid obesity Anxiety and depression Social History Housing: House Patient Tobacco Use Status: Never used Tobacco e-Cigarette/Vaping Use: Never Used service: No Current occupational status: unemployed Cognitive needs: No Hearing needs: No Vision needs: Yes Review of Systems Const All systems reviewed & are unremarkable except as noted in HPI and below Denies weakness ENT Denies dizziness Card Denies chest pain, Denies chest pain with activity, Denies syncope, Reports rapid heart rate, Denies pedal edema, Denies edema, Denies leg edema, Denies lightheadedness, Reports palpitations, Denies dyspnea, Denies dyspnea on exertion and Denies orthopnea Resp Denies cough, Denies dyspnea and Denies dyspnea on exertion GI Denies hematochezia and Denies change in stool character Musc Denies abnormal gait, Denies muscle cramps, Denies muscle weakness, Denies numbness, Denies radiating pain into limb and Denies tingling Neuro Denies abnormal gait, Denies dizziness, Denies syncope, Denies numbness, Denies tingling and Denies weakness Endo Reports palpitations Physical Exam Vital Signs: Last Vital Signs Pulse 58 07/19/25 14:32 BP 108/68 07/19/25 14:32 BMI result Body Mass Index 39.2 Const General: cooperative, healthy appearing, comfortable and no acute distress Orientation/consciousness: patient oriented x3 Neck Neck: Yes normal visual inspection Resp Effort & Inspection: normal respiratory effort Auscultation: clear to auscultation bilaterally, no rales, no rhonchi and no wheezes Cardio Rate: regular rate Rhythm: regular rhythm Heart sounds: S1 normal heart sound present, S2 normal heart sound present, no gallops, Murmur heart sound present (faint systolic) and no rubs Neuro General: patient oriented x3 Extrem General: Yes normal to inspection, No no pedal edema and No calf tenderness Psych Appearance: grossly normal Mental Status: mental status grossly normal Speech and movement: Normal speech and movement present Assessment & Plan Assessment & Plan (1) Pulmonary valve stenosis: Comment: Mild, followed by Cardiology, repeat echocardiogram again in 5 years, no need to limit activities, no need for SBE prophylaxis Code(s): I37.0 - Nonrheumatic pulmonary valve stenosis Category: Medical Plan: History of pulmonic stenosis, previously followed by soldering machine setter and now transitioning to our office. Echocardiogram done 04/25/2025 shows EF 61%, mild pulmonic stenosis, peak gradient 17 mmHg. Cardiology note 01/02/2023 in our system states that she has very mild supravalvar pulmonary stenosis with negative genetic testing for Geetha syndrome, peak gradient 18 mm of Hg across the supravalvar region of the main pulmonary artery. The pulmonic valve itself appears morphologically normal without significant regurgitation or stenosis, no sign of left ventricular hypertrophy. - overall I believe there is no significant change to her condition. Will continue to follow periodically with echocardiograms. (2) Supravalvular stenosis of pulmonary trunk: Code(s): Q25.6 - Stenosis of pulmonary artery Category: Medical Plan: As above (3) Palpitations: Code(s): R00.2 - Palpitations Category: Medical Plan: Reports of heart palpitations, rapid heartbeats causing concern. Holter monitor done 06/21/2025 showing sinus rhythm with average heart rate 82 beats per minute, rare ventricular ectopy. Reviewed results with her in detail and offered reassurance. Reviewed reduction in caffeinated beverages, maintain good hydration, control anxiety. No indication for med management at this time. Plan I discussed with the patient that her heart palpitations are benign. I explained that the Holter monitor she wore showed a normal sinus rhythm with only rare early beats, which are common and not dangerous, and that her symptoms occurred during these benign findings. I reassured her that her heart is healthy and the sensations are likely due to a combination of these early beats and an elevated heart rate from stress and anxiety, particularly regarding her upcoming move for school. We reviewed that her pulmonic stenosis is stable based on a recent echocardiogram and is not the cause of her symptoms, though it warrants periodic monitoring. I advised her to avoid stimulants, stay well-hydrated, and to reassure herself that her heart is functioning normally when she feels palpitations. We agreed she will return for a follow-up appointment in April when she expects to be back in the area. Patient Instructions: - The feeling of a skipping or pounding heart is likely due to normal, extra heartbeats that everyone gets, especially when stressed or anxious. - Try not to worry about your heart when you feel these symptoms. - Make sure to drink plenty of water. - Avoid stimulants such as caffeine in coffee and energy drinks, as these can make your heart feel more active. - Please schedule a follow-up appointment for April. Patient was informed and verbally consented to the use of an ambient scribe for clinic note documentation during this visit. Visit time spent on chart review, interview, assessment, orders, documentation. Coding Level of Care Code Est Pt Level 3 (38048) Add On Problem Visit Only Diagnoses Pulmonary valve stenosis I37.0 Supravalvular stenosis of pulmonary trunk Q25.6 Palpitations R00.2 Time Spent (min) 24
--- OUTSIDE RECORDS SUMMARY | 2025-07-19 18:42 | XMS_ITS | Clinical Summary ---
Author Organization [facility] Address [address] [place] [address] Phone Care Team Providers Care Supervisor Line Department Name Role Phone Margarita Arellano MD Primary [...] Advance Directives For more information, please contact: [phone] (9AM - 5PM [facility], Friday-Friday) * Full Code (Latest Code Status on File) Date Activated Date Inactivated Comments 04/13/2024 6:07 AM Question Answer Comments Code Status Confirmed With: Patient Care Teams Supervisor Line Department Relationship Specialty Start Date End Date Margarita Arellano MD [address] [place] [address] PCP - General Internal Medicine 02/10/24 Additional Source Comments The information contained in this document represents components of the legal health record. It is not the complete legal health record.[facility]
--- OUTSIDE RECORDS SUMMARY | 2025-07-19 18:42 | XMS_ITS | Patient Health Record ---
Author Organization [facility] Address [address] [place] [address] Care Team Providers Care Quality Compliance Coordinator Name Role Phone Eileen LUNA, Margarita Chu Primary Care Provider Un available Esther Rivera Unavailable [phone] Allergies No Known Allergies Reason For Referral [...] 08/16/2024 Encounters Encounter Location Date Provider Diagnosis [facility] [address] [place] [address] 08/16/2024 Esthergloria Rivera Pain in right toe(s) [...] Start Date Coverage End Date C[id number] [place] [phone] [id number] Richard Wilkerson Natural Child - Insured has Financial Responsibility Medical (General) History Medical History History ICD Code Anxiety Depression Gall bladder problems Bipolar disorder Surgical History Surgery Date(Month/Year) uterus removed 04/13/24 Gall bladder 10/2023
--- OUTSIDE RECORDS SUMMARY | 2025-07-19 18:42 | XMS_ITS | Encounter Summary ---
Author Organization [facility] Address [address] [place] [address] [place] [phone] Phone Care Team Providers Care Display Fabrication Supervisor Name Role Phone Margarita Arellano MD Primary Care Provider Encounter Details Date Type Department Care Team (Late st Contact Info) Description 04/13/2024 Procedure Pass OR Admitting Dept - Virtual Department [address] [place] [address] Social History Tobacco Use Types Packs/Day Years [...] on filedocumented in this encounter Care Teams Display Fabrication Supervisor Relationship Specialty Start Date End Date Margarita Arellano MD [facility] [place] [address] PCP - General Internal Medicine 02/10/24 documented as of this encounter Additional Source Comments The information contained in this document represents components of the legal health record. It is not the complete legal health record.[facility]
== END 2025-07-19 15:16 | disposition home or self-care (01) ==
PROVIDERS: PCP Internal Medicine; Visit Provider Nurse Practitioner Family
DX: I37.0 Nonrheumatic pulmonary valve stenosis (principal); Q25.6 Stenosis of pulmonary artery; R00.2 Palpitations
CPT/HCPCS: 99213

== ENCOUNTER → 2025-07-19 14:26 | Outpatient (BNVA) | payer OTHER, MEDICAID, SELFPAY | PROVIDERS: PCP Internal Medicine; Visit Provider Nurse Practitioner Family | DX: I37.0 Nonrheumatic pulmonary valve stenosis (principal); Q25.6 Stenosis of pulmonary artery | CPT/HCPCS: 99212 ==